=== PATIENT | male | born 1960 | race Caucasian/White ===

== ENCOUNTER 2019-04-12 10:31 | Outpatient (CLI) | payer MEDICARE, MEDICAID, SELFPAY ==
[2019-04-12 11:17] LABS: Absolute Basophil Count 0.05 k/cumm (0.0-0.2); Absolute Eosinophil Count 0.18 k/cumm (0.0-0.7); Absolute Lymphocyte Count 1.74 k/cumm (1.2-3.4); Absolute Monocyte Count 0.55 k/cumm (0.11-0.7); Absolute Neutrophil Count 2.63 k/cumm (1.2-6.7); Eosinophils % 3.5; HCT 36.1 % (40.0-50.0); HGB 12.5 g/dL (13.5-17.5); Lymphocytes % 33.8; Mean Corp. HGB Concentration 34.6 g/dL (32.0-36.0); Mean Corpuscular Hemoglobin 31.4 pg (27.0-33.0); Mean Corpuscular Volume 90.7 fL (80-95); Mean Platelet Volume 9.7 fL (8.0-11.0); Monocytes % 10.7; Platelet Count 260 x1000/uL (130-400); RBC 3.98 m/cumm (4.50-6.00); RBC Distribution Width 14.7 % (11.8-14.1); White Blood Cell Count 5.15 k/cumm (4.4-10.8)
[2019-04-12 12:16] LABS: ALT 31 U/L (16-63); AST 24 U/L (15-37); Albumin 3.7 g/dL (3.4-5.0); Alkaline Phosphatase 50 U/L (46-116); Anion Gap 7.7 mmol/L (3-11); BUN 13 mg/dL (7-18); CO2 29.3 mmol/L (21.0-32.0); CREATININE 0.66 mg/dL (0.70-1.30); Calcium 9.1 mg/dL (8.5-10.1); Calculated LDL 254 mg/dL; Chloride 103 mmol/L (98-107); Cholesterol 329 mg/dL (50-200); Glucose 86 mg/dL (70-100); HDL Cholesterol 65 mg/dL (40-60); Potassium 4.4 mmol/L (3.5-5.1); Sodium 140 mmol/L (136-145); Triglyceride 53 mg/dL (30-150)
== END 2019-04-12 10:51 ==
PROVIDERS: PCP Family Medicine; Visit Provider Family Medicine
DX: K50.818 Crohn's disease of both small and large intestine with other complication (principal); E78.89 Other lipoprotein metabolism disorders; Z13.6 Encounter for screening for cardiovascular disorders
CPT/HCPCS: 36415; 80053; 80061; 85025

== ENCOUNTER 2023-11-04 15:29 | Outpatient (CLI) | payer MEDICARE, MEDICAID, SELFPAY ==
--- NOTE | 2023-11-04 10:15 | DI.RAD_ITS ---
Exam(s) XR KNEE LT 4V AP,LAT,FAMILIA,PAT EXAM: XR KNEE LT 4V AP,LAT,FAMILIA,PAT CLINICAL HISTORY: OA LEFT KNEE. TECHNIQUE: 2D digital imaging was performed of the left knee. Five images were obtained. Merchant, AP, lateral and PA tunnel views were obtained. COMPARISON: CR LEFT KNEE 3 VIEW COMPLETE from 01/10/2018 FINDINGS: BONES: No acute fracture is present. No bony destructive lesion is seen. There are enthesophytes at the anterior patella. JOINTS: The knee is normally aligned. No joint effusion is seen. The joint space is well maintained. SOFT TISSUE: Vascular calcifications are present. IMPRESSION: The joint space is well maintained. DATA REPOSITORY: RADIATION DOSE DELIVERED:
== END 2023-11-04 15:30 | disposition home or self-care (01) ==
LOC: DIORS 15:30
PROVIDERS: PCP Family Medicine; Referring Provider Family Medicine; Visit Provider Student in an Organized Health Care Education/Training Program
DX: M17.12 Unilateral primary osteoarthritis, left knee (principal)
CPT/HCPCS: 20610; 99203; J1010; 73564

== ENCOUNTER 2023-11-08 05:02 | Outpatient (CLI) | payer MEDICARE, MEDICAID, SELFPAY ==
[2023-11-08 10:16] LABS: ALT 49 U/L (16-63); AST 44 U/L (15-37); Albumin 3.6 g/dL (3.4-5.0); Alkaline Phosphatase 77 U/L (46-116); Anion Gap 11.2 mmol/L (3-11); BUN 21 mg/dL (7-18); CO2 27.8 mmol/L (21.0-32.0); CREATININE 0.6 mg/dL (0.70-1.30); Calcium 9.2 mg/dL (8.5-10.1); Calculated LDL 159 mg/dL (<100); Chloride 106 mmol/L (98-107); Cholesterol 258 mg/dL (<200); Estimated GFR 109.83 (mL/min/1.73m2); Glucose 93 mg/dL (74-106); HDL Cholesterol 92 mg/dL (40-60); Potassium 3.9 mmol/L (3.5-5.1); Sodium 145 mmol/L (136-145); Total Protein 8.9 g/dL (6.4-8.2); Triglyceride 35 mg/dL (<150)
== END 2023-11-08 05:03 | disposition home or self-care (01) ==
LOC: LBO 05:03
PROVIDERS: PCP Family Medicine; Referring Provider Family Medicine; Visit Provider Family Medicine
DX: E78.5 Hyperlipidemia, unspecified (principal)
CPT/HCPCS: 36415; 80053; 80061

== ENCOUNTER 2023-11-13 20:17 | Inpatient (IN) | payer MEDICARE, MEDICAID, SELFPAY ==
[2023-11-13] VITALS (41 sets, daily range): BP systolic 76–160; BP diastolic 40–138; PULSE 70–101; RESP 15–29; TEMP 36.7–38.8; O2SAT 91–98
--- NOTE | 2023-11-13 20:00 | RT.EKG_ITS ---
APPROVED REPORT Exam: Resting ECG Reason for Exam: fall Patient Location: E HR:95 bpm ECG Measurements Heart Rate 95 AXIS WV 151 P 41 QRSd 95 QRS 55 QT 384 T 49 QTc 485 Conclusion Sinus rhythm...normal P axis, V-rate 60- 99 Probable left atrial enlargement...P >50mS, <-0.10mV V1 sinus rhythm, normal axis, normal intervals non ischemic
--- NOTE | 2023-11-13 20:30 | DI.CT_ITS ---
Exam(s) CT BRAIN NECK CTA EXAM: CT BRAIN NECK CTA CLINICAL HISTORY: falling x2 days. TECHNIQUE: Imaging Protocol: Axial CT angiography was performed with multi-slice acquisition and mu lti-planar and/or 3D reconstructions. CONTRAST MATERIAL: Intravenous: Omnipaque 350 Contrast volume:structured data in ml COMPARISON: No exams were available for comparison FINDINGS: CTA Neck W: Aortic arch anatomy: Average right subclavian artery is noted. In addition, the left vertebral arter y originates as an independent vessel off the aortic arch. No intimal flap evident. Anterior circulation: Both common carotid arteries ascend with normal luminal diameters. On the right side there is some calcified plaque at the carotid bulb and proximal right ICA with appr oximately 10 percent stenosis. Above the cell below the right ICA exhibits normal diameter in the up per neck and skull base. No dissection. The left common carotid artery ascends with normal luminal diameter. There is plaque at the carotid bulb-proximal left ICA with approximately 30-40 percent stenosis. Above this level the left ICA in t he upper neck exhibits normal diameter. No dissection Posterior circulation: The left vertebral artery arises from the aortic arch as an independent vessel. The right vertebral artery arises off of the right common carotid artery. It does not appear to arise off the average ri ght subclavian artery. Both vertebral arteries exhibit normal luminal diameters within the foramen transversarium. Both vertebral arteries contribute to the formation of the basilar artery at the skull base. CTA Brain W: Anterior circulation: Both internal carotid arteries are patent in the skull base-carotid canals as well as within the cave rnous sinuses. The supraclinoid aspects of the ICAs are patent. Both A1 segments are patent as are the anterior cer ebral arteries and there is no evidence of aneurysm at the level of the anterior communicating artery . Both middle cerebral arteries are patent with no evidence of significant stenosis nor intraluminal th rombus. There also no aneurysms of these vessels. Posterior circulation: The basilar artery ascends in the midline. Distally it gives off patent bilateral superior cerebella r arteries. Above this level the basilar artery terminates as patent bilateral posterior cerebral arteries. The left P1 segment is thinner than the right and there is a posterior communicating artery on the le ft side of the [id number] adding flow to the left posterior cerebral artery. There is no evidence of aneurysm at the tip of the basilar artery nor elsewhere in the [id number] is. CT BRAIN: There is no evidence of intracranial hemorrhage, mass effect, or shift of midline structures. There are no extra-axial fluid collections. Ventricles are not enlarged or shifted. Heavy calcification i s noted in in both basal ganglia as well as both thalami. There are no ring enhancing lesions in the brain and no abnormal meningeal enhancement. There is mild periventricular hypodensity consistent with chronic small vessel disease. [facility] report states acute to subacute appearing infarct involving the superior right prec entral gyrus. Not sure that I appreciate this. IMPRESSION: 1. Calcified plaque in the proximal internal carotid arteries bilaterally with approximately 10 perce nt stenosis on the right and 30-40 percent stenosis on the left. 2. Patent vertebral arteries. However, the origin of the left vertebral artery is off of the aortic arch and the origin of the right vertebral artery is off the right common carotid artery. There is a n aberrant right subclavian artery here. 3. Patent intracranial arteries. 4. [facility] report states acute to subacute appearing infarct of the right superior precentr al gyrus. Recommend follow-up MRI with diffusion imaging. RADIATION DOSE DELIVERED: 1,950.26mGy.cm Total DLP DATA REPOSITORY: All CT scans at this facility are submitted to the National Radiology Data Registry (NRDR) Dose Index Registry (DIR) with the [employer] ([employer]). RADIATION OPTIMIZATION: All CT scans at this facility use at least one of these dose optimization te chniques: automated exposure control; mA and/or kV adjustment per patient size (includes targeted exa ms where dose is matched to clinical indication); or iterative reconstruction.
[2023-11-13 20:42] LABS: Abs Immature Grans 0.01 10^3/uL (0.0-0.06); Absolute Basophil Count 0.04 10^3/uL (0.0-0.2); Absolute Eosinophil Count 0.01 10^3/uL (0.0-0.7); Absolute Lymphocyte Count 0.87 10^3/uL (1.2-3.4); Absolute Monocyte Count 1.06 10^3/uL (0.1-0.8); Absolute Neutrophil Count 4.97 10^3/uL (1.2-6.7); Basophils % 0.6; Eosinophils % 0.1; HCT 32.1 % (40.0-50.0); HGB 11.2 g/dL (13.5-17.5); Immature Grans % 0.1; Lymphocytes % 12.5; MCH 33.6 pg (27.0-33.0); MCHC 34.9 % (32.0-36.0); MCV 96 fL (80-95); MPV 10.4 fL (8.0-11.0); Monocytes % 15.2; Neutrophils % 71.5; Platelet Count 110 10^3/uL (130-400); RBC 3.33 10^6/uL (4.36-5.78); RDW 14.2 % (11.8-14.1); RDW-SD 50.9 fL; WBC 6.96 10^3/uL (4.4-10.8)
[2023-11-13 20:43] LABS: BE (Venous) 3 mmol/L (-2-3); ESR 77 mm/hr (0-20); HCO3 (Venous) 27 mmol/L (23-28); Lactate 1.3 mmol/L (0.6-1.4); O2 Sat (Venous) 78 %; TCO2 (Venous) 24 mmol/L (24-29); pCO2 (Venous) 38 mmHg (41-51); pH (Venous) 7.45 (7.31-7.41); pO2 (Venous) 42 mmHg
--- NOTE | 2023-11-13 20:43 | ED.GENADUL_ITS ---
Discharge Plan Disposition Patient Disposition: Admit to [facility] Condition: Stable Discharge Details Clinical Impression: Cerebrovascular accident Primary Care Provider: Guy Dias ED Provider: Dilshad Devries Home Meds and New Rx's Prescriptions: No Action atorvastatin 40 mg tablet 40 mg PO QHS Qty: 90 3RF multivitamin [Daily Multi-Vitamin] 1 EACH tablet 1 ea PO cholecalciferol (vitamin D3) 1,000 UNIT capsule 1,000 unit PO DAILY Qty: 30 folic acid 1 mg tablet 1 mg PO DAILY Qty: 90 3RF Rx Instructions: with sulfasalazine sulfasalazine 500 mg tablet 500 mg PO BID Qty: 180 3RF Rx Instructions: for Crohn's enteritis HPI General Date/Time Provider Initiated Documentation: 11/13/23 20:33 . HPI Narrative: 63 year-old male presents to ED today by EMS with his brother with a chief complaint of multiple falls since yesterday, unsteadiness, possibly impaired speech with onset noted yesterday evening. Patient is febrile, has noted rash on R bicep area, incontinence on arrival. Quality described as follows commands but unreliable per specific story, denies major pain anywhere, no radiation to tachycardia, he is febrile, denies nausea vomiting, has been eating, denies numbness to half his body, denies visual changes. Severity is described as unable to quantify/10. Palliating factors include nothing specific attempted. Provoking factors include nothing specific. Events leading up to the incident/Associated Symptoms: Patient's brother said he had to help him up multi ple times today. Patient not anticoagulated. Related Data Home Medications Medication Instructions Recorded Confirmed cholecalciferol (vitamin D3) 25 1,000 unit PO DAILY ##30 09/23/12 11/13/23 mcg (1,000 unit) capsule multivitamin (Daily Multi-Vitamin 1 ea PO 09/23/12 11/04/23 tablet) folic acid 1 mg tablet 1 mg PO DAILY #90 tab-caps 08/23/23 11/13/23 atorvastatin 40 mg tablet 40 mg PO QHS #90 tabs 09/20/23 11/13/23 sulfasalazine 500 mg tablet 500 mg PO BID #180 tabs 10/14/23 11/13/23 Previous Rx's Medication Instructions Recorded folic acid 1 mg tablet 1 mg PO DAILY #90 tab-caps 02/05/24 atorvastatin 40 mg tablet 40 mg PO QHS #90 tabs 09/20/23 sulfasalazine 500 mg tablet 500 mg PO BID #180 tabs 10/14/23 Allergies Allergy/AdvReac Type Severity Reaction Status Date / Time Penicillins Allergy Unknown unknown Verified 11/13/23 20:38 General Stated Complaint: Fall/Non TraumaCriteria YADI: 3 Review of Systems All systems reviewed & are unremarkable except as noted in HPI and below Exam Narrative Exam Narrative: GENERAL APPEARANCE: Well-nourished, non-toxic, awake and alert, atraumatic, no acute distress. SKIN: Warm, pink, dry, vesicular rash 5 x 5 cm to bicep area, question staph infection HEAD: Normocephalic, some mild ecchymosis to R forehead, no large scalp hematoma, no Romo's sign, no periorbital ecchymosis, normal hair distribution for gender/age. EYES: Pupils PERRLA, EOMs intact without nystagmus, normal conjunctiva, no exudates on lids/lashes. ENT: Nares patent, no circumoral cyanosis, no facial swelling NECK: Supple, trachea midline, painless cervical ROM, no midline vertebral tenderness/crepitus/step-offs. LUNGS/CHEST: Lungs CTA bilaterally- no rhonchi/rales/wheezes diffusely, non- labored respirations, normal A/P diameter, symmetrical expansion, no chest wall deformity HEART (CV/PV): Regular rate and rhythm without murmur, no peripheral edema, no JVD. ABDOMEN: Soft, non-distended, no guarding, no tenderness. MSK: Normal ROM, no swelling/deformity to bilateral UEs or LEs, moving all extremities without weakness, no cyanosis, spine midline without tenderness, normal curvature. NEURO: Mental Status AAOx4 - alert to person, place, events - able to follow all commands No facial droop, no forehead involvement. Motor: No focal weakness - strength 5/5 in bilateral UEs and LEs, proximal and distal, symmetric, no pronator drift, no hemiparesis, Sensory: sensation intact to light touch globally. Gait NT PSYCH: flat affect, cooperative, pleasant, appropriate speech Course Vital Signs Vital signs: Vital Signs Respiratory Rate 22 11/13/23 20:23 Temperature 38.5 C H 11/13/23 20:25 Temperature Source Temporal Artery Scan 11/13/23 20:25 Pulse 93 H 11/13/23 20:31 Pulse 95 H 11/13/23 20:31 Respiratory Rate 24 11/13/23 20:31 Respiratory Effort Normal 11/13/23 20:33 Blood Pressure 160/78 H 11/13/23 20:31 Blood Pressure Mean 99 11/13/23 20:31 Blood Pressure Position Supine 11/13/23 20:25 Pulse Oximetry 93 11/13/23 20:31 Pain Level 0 11/13/23 20:25 Lab/Test Results Lab/Test Results: 11/13/23 20:34 Blood Blood Culture - Pending 11/13/23 20:34 Blood Blood Culture - Pending Laboratory Tests Range/Units 11/13/23 20:34 WBC (4.4-10.8) 10^3/uL 6.96 RBC (4.36-5.78) 10^6/uL 3.33 L Hgb (13.5-17.5) g/dL 11.2 L Hct (40.0-50.0) % 32.1 L MCV (80-95) fL 96 H MCH (27.0-33.0) pg 33.6 H MCHC (32.0-36.0) % 34.9 RDW (11.8-14.1) % 14.2 H Plt Count (130-400) 10^3/uL 110 L MPV (8.0-11.0) fL 10.4 Immature Gran % 0.1 Neutrophils % 71.5 Lymphocytes % 12.5 Monocytes % 15.2 Eosinophils % 0.1 Basophils % 0.6 Nucleated RBC % (0.0-0.3) % 0.0 Absolute Neutrophils (1.2-6.7) 10^3/uL 4.97 Absolute Lymphocytes (1.2-3.4) 10^3/uL 0.87 L Absolute Monocytes (0.1-0.8) 10^3/uL 1.06 H Absolute Eosinophils (0.0-0.7) 10^3/uL 0.01 Absolute Basophils (0.0-0.2) 10^3/uL 0.04 Medical Decision Making This dictation utilizes [id number] dictation software and may contain unedited grammatical errors. 63 y/o M presents to ED today with a chief complaint of multiple falls since yesterday in the evening, weakness, rash to R arm, altered from baseline per brother. Patient is febrile, nontachycardic, no nausea vomiting, denies black or bloody stools, no significant coughing or URI symptoms. Patients' medical history: History of cerumen impaction, hyperlipidemia, developmental disorder, Crohn's disease, anemia. Pertinent exam findings / vital signs include fever, rash to right bicep area that appears vesicular question staph cellulitis, benign pulmonary exam, benign abdomen, no murmur and cardiac auscultation, moving all extremities without deficit, no nystagmus, speech abnormality but has cognitive delay, I do not suspect CVA. Differential / pathologies of concern include SAH, ICH, CVA/TIA, sepsis, less likely ACS, electrolyte abnormality, UTI, pneumonia. Diagnostic studies of: -CBC, CMP, troponin I (+3hr delta), BNP, VBG, CRP/ESR, lactate, magnesium, procalcitonin, EKG, COVID/flu/RSV PCR, blood cultures, urinalysis, CTA head and neck, x-ray chest 1 view. -CBC shows no leukocytosis, anemia of 11.2, baseline around 12, mildly low platelets at 110 -CRP/ESR elevated -VBG shows mild alkalosis with low CO2 possible hyperventilation syndrome -CMP shows mildly elevated BUN, mildly elevated bilirubin -Lipase within normal limits -Lactate 1.3, procalcitonin 0.2, do not suspect sepsis at this time -BNP 582 -Initial troponin 133, delta is pending at time of signout -COVID/flu/RSV negative by PCR -Magnesium within normal limits -Blood Cx's pending -EKG shows a sinus rhythm at 95 bpm with P waves followed by narrow complex QRS with normal axis, good R wave progression, possible left atrial enlargement, no ST changes of ischemia, normal QT QTc no priors for comparison -XR Chest no pathology -CTA Brain & Neck shows some calcified placques almost symmetrical- as well as a likely small 1-2 day old CVA, will consult for admission. Patient has no history of atrial fibrillation Interventions of: -1L IVF, 1g IV APAP, 15mg IV Ketorlac. ED Course/Assessment/Plan: 63-year-old patient with baseline developmental disorder presents with some falls since last night and balance issues, he has no obvious left-sided weakness on arrival and is following commands appropriately, his laboratory workup has an elevated BNP of 582 and an initial troponin of 133 with delta pending at time of signout. His CTA shows a small subacute appearing infarction above the superior right precentral gyrus that would be consistent with left-sided symptoms. I did approach hospitalist Dr. Weeks for admission to the hospital for CVA for optimization on medication management and possible referral to rehab services. Added 325mg ASA, Ancef for fever, and patient accepted for admission by Dr. Weeks @ 2315 Disposition of Cerebrovascular Accident. Patient verbalized understanding of the plan and return to ED criteria and engaged in shared decision making. Medical Records Medical records reviewed: Yes I reviewed the patient's medical records. Imaging Data Radiologic Study: Attestation: I personally reviewed and interpreted this imaging study as follows: Imaging: CT Scan Radiologist's impression: Addendum created by Herman Nunez MD on 11/13/2023 11:00:35 PM EDT: THIS REPORT CONTAINS FINDINGS THAT MAY BE CRITICAL TO PATIENT CARE. The findings were verbally communicated via telephone conference with DILSHAD DEVRIES at 11:00 PM EDT on 11/13/2023. The findings were acknowledged and understood. Initial report created on 11/13/2023 10:59:28 PM EDT: PROCEDURE INFORMATION: Exam: CTA Head Without And With Contrast, Arteriography Exam date and time: 11/13/2023 10:10 PM Age: 63 years old Clinical indication: Other: Falling x2 days TECHNIQUE: Imaging protocol: Computed tomographic angiography of the head without and with contrast. Exam focused on the arteries. 3D rendering (Not supervised by radiologist): MIP and/or 3D reconstructed images were created by the technologist. Radiation optimization: All CT scans at this facility use at least one of these dose optimization techniques: automated exposure control; mA and/or kV adjustment per patient size (includes targeted exams where dose is matched to clinical indication); or iterative reconstruction. Contrast material: [id number]; Contrast volume: 85 ml; Contrast route: INTRAVENOUS (IV); COMPARISON: No relevant prior studies available. FINDINGS: Limitations: Examination is limited by motion artifact. ANTERIOR CIRCULATION: Right internal carotid artery: Intracranial segment is patent with no significant stenosis or occlusion. No aneurysm. Right middle cerebral artery: No occlusion or significant stenosis. No aneurysm. Right anterior cerebral artery: No occlusion or significant stenosis. No aneurysm. Left internal carotid artery: Intracranial segment is patent with no significant stenosis. No aneurysm. Left middle cerebral artery: No occlusion or significant stenosis. No aneurysm. Left anterior cerebral artery: No occlusion or significant stenosis. No aneurysm. POSTERIOR CIRCULATION: Right vertebral artery: No occlusion or significant stenosis. No aneurysm. Left vertebral artery: No occlusion or significant stenosis. No aneurysm. Basilar artery: No occlusion or significant stenosis. No aneurysm. Right posterior cerebral artery: No occlusion or significant stenosis. No aneurysm. Left posterior cerebral artery: Patent and type left posterior cerebral artery. HEAD: Brain: Acute to subacute appearing infarct involving the superior right precentral gyrus. Prominent symmetric calcifications of the basal ganglia and thalami. Mild nonspecific hypodensities of the periventricular and deep subcortical white matter, most likely secondary to chronic microangiopathic ischemic change. No intracranial hemorrhage or extra-axial fluid collection. No evidence of mass effect or midline shift. Cerebral ventricles: No ventriculomegaly. Bones/joints: Unremarkable. Paranasal sinuses: Visualized sinuses are normal. No fluid levels. Mastoid air cells: Visualized mastoids are normal. No mastoid effusion. Soft tissues: Frontal scalp contusions. IMPRESSION: 1. Acute to subacute appearing infarct involving the superior right precentral gyrus. 2. No intracranial arterial occlusion or significant stenosis. 3. Frontal scalp contusions. PROCEDURE INFORMATION: Exam: CTA Neck Without And With Contrast Exam date and time: 11/13/2023 10:10 PM Age: 63 years old Clinical indication: Other: Falling x2 days TECHNIQUE: Imaging protocol: Computed tomographic angiography of the neck without and with contrast. Exam focused on the cervical segments of the vasculature. 3D rendering (Not supervised by radiologist): MIP and/or 3D reconstructed images were created by the technologist. Radiation optimization: All CT scans at this facility use at least one of these dose optimization techniques: automated exposure control; mA and/or kV adjustment per patient size (includes targeted exams where dose is matched to clinical indication); or iterative reconstruction. Contrast material: [id number]; Contrast volume: 85 ml; Contrast route: INTRAVENOUS (IV); COMPARISON: No relevant prior studies available. FINDINGS: Right common carotid artery: No significant stenosis. No dissection or occlusion. Right internal carotid artery: Atherosclerotic plaques involving the proximal extracranial right internal carotid artery without evidence of hemodynamically significant stenosis (0% stenosis by NASCET criteria). Right external carotid artery: No occlusion or significant stenosis. Left common carotid artery: No significant stenosis. No dissection or occlusion. Left internal carotid artery: Atherosclerotic plaques within the proximal extracranial left internal carotid artery cause approximately 30 % stenosis by NASCET criteria. Remaining portions of the extracranial left ICA are patent. Left external carotid artery: No occlusion or significant stenosis. Right vertebral artery: No significant stenosis. No dissection or occlusion. Left vertebral artery: No significant stenosis. No dissection or occlusion. Right subclavian artery: Aberrant origin of the right subclavian artery. Soft tissues: Unremarkable. Bones/joints: No acute fracture. IMPRESSION: No occlusion or severe stenosis in the arteries of the neck. REFERENCES: NASCET CRITERIA. The degree of stenosis in the cervical segment of the internal carotid artery is based on NASCET criteria. Normal is no stenosis. Mild is less than 50% stenosis. Moderate is 50-69% stenosis. Severe is 70% to 99% stenosis. Total occlusion is no detectable patent lumen. Dictated and Authenticated by: Herman Nunez MD. Ordering:KANDY Yung MD Radiologic Study #2: Attestation: I personally reviewed and interpreted this imaging study as follows: Imaging: X-Ray Radiologist's impression: Exam: XR Chest Exam date and time: 11/13/2023 10:25 PM Age: 63 years old Clinical indication: Possible sepsis, source unknown TECHNIQUE: Imaging protocol: Radiologic exam of the chest. Views: 1 view. COMPARISON: CT BRAIN NECK CTA 11/13/2023 10:10 PM FINDINGS: Lungs: No focal areas of consolidation. Pleural spaces: No pleural effusion. No pneumothorax. Heart/Mediastinum: Cardiac and mediastinal silhouettes are unremarkable. Bones/joints: No acute osseus lesion or fracture. IMPRESSION: No acute cardiopulmonary findings. Dictated and Authenticated by: Herman Nunez MD. Ordering:KANDY Yung MD Lab Data Lab results reviewed: Yes I reviewed the patient's lab results. Labs: 11/13/23 20:50 Blood Blood Culture - Pending 11/13/23 20:34 Blood Blood Culture - Pending Laboratory Tests Range/Units 11/13/23 11/13/23 20:34 20:50 WBC (4.4-10.8) 10^3/uL 6.96 RBC (4.36-5.78) 10^6/uL 3.33 L Hgb (13.5-17.5) g/dL 11.2 L Hct (40.0-50.0) % 32.1 L MCV (80-95) fL 96 H MCH (27.0-33.0) pg 33.6 H MCHC (32.0-36.0) % 34.9 RDW (11.8-14.1) % 14.2 H Plt Count (130-400) 10^3/uL 110 L MPV (8.0-11.0) fL 10.4 Immature Gran % 0.1 Neutrophils % 71.5 Lymphocytes % 12.5 Monocytes % 15.2 Eosinophils % 0.1 Basophils % 0.6 Nucleated RBC % (0.0-0.3) % 0.0 Absolute Neutrophils (1.2-6.7) 10^3/uL 4.97 Absolute Lymphocytes (1.2-3.4) 10^3/uL 0.87 L Absolute Monocytes (0.1-0.8) 10^3/uL 1.06 H Absolute Eosinophils (0.0-0.7) 10^3/uL 0.01 Absolute Basophils (0.0-0.2) 10^3/uL 0.04 ESR (0-20) mm/hr 77 H VBG pH (7.31-7.41) 7.45 H VBG pCO2 (41-51) mmHg 38 L VBG pO2 mmHg 42 VBG HCO3 (23-28) mmol/L 27 VBG Total CO2 (24-29) mmol/L 24 VBG O2 Saturation % 78 VBG Base Excess (-2-3) mmol/L 3 VBG Lactate (0.6-1.4) mmol/L 1.3 Sodium (136-145) mmol/L 135 L Potassium (3.5-5.1) mmol/L 3.5 Chloride (98-107) mmol/L 100 Carbon Dioxide (21.0-32.0) mmol/L 26.0 Anion Gap (3-11) mmol/L 9.0 BUN (7-18) mg/dL 21 H Creatinine (0.70-1.30) mg/dL 0.7 Est GFR (CKD-EPI 2020) (mL/min/1.73m2) 104.83 Glucose (74-106) mg/dL 120 H Calcium (8.5-10.1) mg/dL 8.5 Magnesium (1.8-2.4) mg/dL 1.8 Total Bilirubin (0.2-1.0) mg/dL 1.7 H AST (15-37) U/L 42 H ALT (16-63) U/L 38 Alkaline Phosphatase (46-116) U/L 71 Troponin I (< or =60) ng/L 133 H* C-Reactive Protein (<or=0.5) mg/dL 4.63 H NT-Pro-B Natriuret Pep (<300) pg/mL 582 H Total Protein (6.4-8.2) g/dL 8.5 H Albumin (3.4-5.0) g/dL 3.4 Lipase (16-77) U/L 40 Procalcitonin ng/mL 0.2 COVID-19 Source Nasopharynx SARS-CoV-2 (PCR) (Negative) Negative Influenza Type A (PCR) (Negative) Negative Influenza Type B (PCR) (Negative) Negative RSV (PCR) (Negative) Negative Quality:SDOH Health Related Social Needs: No Data to Display PFSH All Active Problems (Updated 11/13/23 @ 23:10 by RAMONA Small) Cerebrovascular accident (Chronic) Cerumen impaction (Acute) Arthritis of knee, left (Acute) DEPO MEDROL 11/04/23 Neck muscle strain (Acute) Testicular hypofunction (Acute 10/06/11) Regional enteritis of unspecified site (Acute 01/15/83) Colonoscopy Dr Marcy Suero 08/12/1983; FAMILY DECLINES REPEAT Hyperlipidemia (Acute 09/17/07) LDL >200; RISK 6% CALCULATED 09/2007; RX LIFESTYLE, FAMILY DECLINES MEDS; recalculated 5.4% no med indicated 05/2014; LDL >190: rec statin based on LDL; Risk calculated 06/2016 7.8% would not merit rx. Developmental disorder (Acute 07/19/81) [employer], [facility] Crohn's disease of both small and large intestine with other complication (Acute) perianal inflammation; compound topical Anemia (Acute 09/27/08) Hb 12.4 in 2008; mild normocytic; persists, likley due to sulfasalazine; normal iron, B12 Surgical History H/O colonoscopy (08/12/83) Family History Mother Ulcerative colitis 08/2010 Maternal Aunt Diabetes Paternal Uncle Colon cancer Maternal Grandmother Liver cancer Social History (Updated 09/20/23 @ 13:30 by Sindy Norman) Smoking/Tobacco Use Status: Never Second Hand Exposure: No Smoking risk assessment performed?: Yes Alcohol Intake: never Substance use type: does not use Adopted: No Caregiver/Support person: Yes (mother) Foster care: No Household members: other Details: lives with brother Housing: house Number of Children: 0 number of grandchildren: 0 Education Level: high school Do you need help understanding health information?: Often current occupation: [employer] Pets and animals: No How often do you talk on the phone with friends or family?: twice per week How often do you get together with friends or relatives?: three or more times per week Do you belong to any clubs or organized social groups?: no Panel score (0-1 are the most socially isolated patients): 1 Jyotsna/Uatsdin: Shinto Special jyotsna needs: No Seatbelt use: always Drive intox or ride w/intox hazmat tanker driver: No Water heater temp set <120 deg: Yes Working smoke detector in home: Yes Fire extinguisher in home: Yes Carbon monox detector in home: Yes Victim of physical abuse: No Victim of emotional abuse: No Victim of sexual abuse: No Additional Social history: LIVE W/ PARENTS IN [place]
--- NOTE | 2023-11-13 20:44 | DI.RAD_ITS ---
Exam(s) XR CHEST 1V IN DI DEPT EXAM: XR CHEST 1V IN DI DEPT CLINICAL HISTORY: possible sepsis, source unknown. TECHNIQUE: 2D digital imaging was performed. COMPARISON: No exams were available for comparison FINDINGS: Single AP portable view. Heart size is upper normal. The mediastinum is not widened. Lungs are clear. No infiltrates nor obvious pleural effusions. IMPRESSION: No acute pulmonary findings on this single AP portable view of the chest. DATA REPOSITORY: RADIATION DOSE DELIVERED:
[2023-11-13 21:02] LABS: ALT 38 U/L (16-63); AST 42 U/L (15-37); Albumin 3.4 g/dL (3.4-5.0); Alkaline Phosphatase 71 U/L (46-116); BUN 21 mg/dL (7-18); Bilirubin, Total 1.7 mg/dL (0.2-1.0); C-Reactive Protein 4.63 mg/dL (<or=0.5); CREATININE 0.7 mg/dL (0.70-1.30); Calcium 8.5 mg/dL (8.5-10.1); Chloride 100 mmol/L (98-107); Estimated GFR 104.83 (mL/min/1.73m2); Glucose 120 mg/dL (74-106); Lipase 40 U/L (16-77); Magnesium 1.8 mg/dL (1.8-2.4); Potassium 3.5 mmol/L (3.5-5.1); Sodium 135 mmol/L (136-145); Total Protein 8.5 g/dL (6.4-8.2)
[2023-11-13 21:04] LABS: Troponin I 133 ng/L (< or =60)
[2023-11-13] MEDS: Ketorolac 15 MG/ML VIAL IVP (21:04)
[2023-11-13] MEDS: ACETAMINOPHEN 1,000 MG/100 ML BTL 400 MG IVPB (21:05)
[2023-11-13] MEDS: Normal Saline 1,000 ML 1000 ML IV (21:06)
[2023-11-13 21:09] LABS: NT-proBNP 582 pg/mL (<300)
[2023-11-13 21:31] LABS: COVID-19 PCR Negative (Negative); Influenza A PCR Negative (Negative); Influenza B PCR Negative (Negative); RSV PCR Negative (Negative)
[2023-11-13 21:38] LABS: Source Nasopharynx
[2023-11-13 21:48] LABS: Procalcitonin 0.2 ng/mL
[2023-11-13] MEDS: Omnipaque 350 MG/ML 100 ML BTL IJ (22:11)
[2023-11-13] MEDS: Normal Saline - Diluent 50 ML VIAL IJ (22:19)
--- NOTE | 2023-11-13 22:54 | DI.VRAD_ITS ---
PROCEDURE INFORMATION: Exam: XR Chest Exam date and time: 11/13/2023 10:25 PM Age: 63 years old Clinical indication: Possible sepsis, source unknown TECHNIQUE: Imaging protocol: Radiologic exam of the chest. Views: 1 view. COMPARISON: CT BRAIN NECK CTA 11/13/2023 10:10 PM FINDINGS: Lungs: No focal areas of consolidation. Pleural spaces: No pleural effusion. No pneumothorax. Heart/Mediastinum: Cardiac and mediastinal silhouettes are unremarkable. Bones/joints: No acute osseus lesion or fracture. IMPRESSION: No acute cardiopulmonary findings. Dictated and Authenticated by: Herman Nunez MD. Ordering:KANDY Yung MD
--- NOTE | 2023-11-13 23:00 | DI.VRAD_ITS ---
Addendum created by Herman Nunez MD on 11/13/2023 11:00:35 PM EDT: THIS REPORT CONTAINS FINDINGS THAT MAY BE CRITICAL TO PATIENT CARE. The findings were verbally communicated via telephone conference with INDU DEVRIES at 11:00 PM EDT on 11/13/2023. The findings were acknowledged and understood. Initial report created on 11/13/2023 10:59:28 PM EDT: PROCEDURE INFORMATION: Exam: CTA Head Without And With Contrast, Arteriography Exam date and time: 11/13/2023 10:10 PM Age: 63 years old Clinical indication: Other: Falling x2 days TECHNIQUE: Imaging protocol: Computed tomographic angiography of the head without and with contrast. Exam focused on the arteries. 3D rendering (Not supervised by radiologist): MIP and/or 3D reconstructed images were created by the technologist. Radiation optimization: All CT scans at this facility use at least one of these dose optimization techniques: automated exposure control; mA and/or kV adjustment per patient size (includes targeted exams where dose is matched to clinical indication); or iterative reconstruction. Contrast material: [id number]; Contrast volume: 85 ml; Contrast route: INTRAVENOUS (IV); COMPARISON: No relevant prior studies available. FINDINGS: Limitations: Examination is limited by motion artifact. ANTERIOR CIRCULATION: Right internal carotid artery: Intracranial segment is patent with no significant stenosis or occlusion. No aneurysm. Right middle cerebral artery: No occlusion or significant stenosis. No aneurysm. Right anterior cerebral artery: No occlusion or significant stenosis. No aneurysm. Left internal carotid artery: Intracranial segment is patent with no significant stenosis. No aneurysm. Left middle cerebral artery: No occlusion or significant stenosis. No aneurysm. Left anterior cerebral artery: No occlusion or significant stenosis. No aneurysm. POSTERIOR CIRCULATION: Right vertebral artery: No occlusion or significant stenosis. No aneurysm. Left vertebral artery: No occlusion or significant stenosis. No aneurysm. Basilar artery: No occlusion or significant stenosis. No aneurysm. Right posterior cerebral artery: No occlusion or significant stenosis. No aneurysm. Left posterior cerebral artery: Patent and type left posterior cerebral artery. HEAD: Brain: Acute to subacute appearing infarct involving the superior right precentral gyrus. Prominent symmetric calcifications of the basal ganglia and thalami. Mild nonspecific hypodensities of the periventricular and deep subcortical white matter, most likely secondary to chronic microangiopathic ischemic change. No intracranial hemorrhage or extra-axial fluid collection. No evidence of mass effect or midline shift. Cerebral ventricles: No ventriculomegaly. Bones/joints: Unremarkable. Paranasal sinuses: Visualized sinuses are normal. No fluid levels. Mastoid air cells: Visualized mastoids are normal. No mastoid effusion. Soft tissues: Frontal scalp contusions. IMPRESSION: 1. Acute to subacute appearing infarct involving the superior right precentral gyrus. 2. No intracranial arterial occlusion or significant stenosis. 3. Frontal scalp contusions. PROCEDURE INFORMATION: Exam: CTA Neck Without And With Contrast Exam date and time: 11/13/2023 10:10 PM Age: 63 years old Clinical indication: Other: Falling x2 days TECHNIQUE: Imaging protocol: Computed tomographic angiography of the neck without and with contrast. Exam focused on the cervical segments of the vasculature. 3D rendering (Not supervised by radiologist): MIP and/or 3D reconstructed images were created by the technologist. Radiation optimization: All CT scans at this facility use at least one of these dose optimization techniques: automated exposure control; mA and/or kV adjustment per patient size (includes targeted exams where dose is matched to clinical indication); or iterative reconstruction. Contrast material: [id number]; Contrast volume: 85 ml; Contrast route: INTRAVENOUS (IV); COMPARISON: No relevant prior studies available. FINDINGS: Right common carotid artery: No significant stenosis. No dissection or occlusion. Right internal carotid artery: Atherosclerotic plaques involving the proximal extracranial right internal carotid artery without evidence of hemodynamically significant stenosis (0% stenosis by NASCET criteria). Right external carotid artery: No occlusion or significant stenosis. Left common carotid artery: No significant stenosis. No dissection or occlusion. Left internal carotid artery: Atherosclerotic plaques within the proximal extracranial left internal carotid artery cause approximately 30 % stenosis by NASCET criteria. Remaining portions of the extracranial left ICA are patent. Left external carotid artery: No occlusion or significant stenosis. Right vertebral artery: No significant stenosis. No dissection or occlusion. Left vertebral artery: No significant stenosis. No dissection or occlusion. Right subclavian artery: Aberrant origin of the right subclavian artery. Soft tissues: Unremarkable. Bones/joints: No acute fracture. IMPRESSION: No occlusion or severe stenosis in the arteries of the neck. REFERENCES: NASCET CRITERIA. The degree of stenosis in the cervical segment of the internal carotid artery is based on NASCET criteria. Normal is no stenosis. Mild is less than 50% stenosis. Moderate is 50-69% stenosis. Severe is 70% to 99% stenosis. Total occlusion is no detectable patent lumen. Dictated and Authenticated by: Herman Nunez MD. Ordering:KANDY Yung MD
[2023-11-13 23:52] LABS: Bilirubin Negative (Negative); Blood Negative (Negative); Clarity Clear (Clear); Glucose Negative (Negative); Ketones Negative (Negative); Leukocyte Esterase Negative (Negative); Nitrite Negative (Negative); Specific Gravity 1.025 (1.005-1.025); pH 5.5 (5-8)
--- NOTE | 2023-11-13 23:53 | W.PM.HP.N ---
Date of service: 11/13/23 Time of Service: 23:53 Assessment and Plan Assessment and plan (1) Cerebrovascular accident: Start date: 11/11/23 Status: Acute Assessment and plan: This is a 63-year-old gentleman with chronic developmental delay on atorvastatin for hyperlipidemia but not on antihypertensives presenting with stroke symptoms and increased falling with injury to his right face and question of right-sided weakness though his CT of the head shows a subacute infarction in the right precentral gyrus which should cause left-sided weakness the patient appears to be slightly weaker on the right. He does not consistent findings. He will need an MRI of the head and echocardiogram with bubble study. Cardiac monitoring will be continued with patient having elevated troponins which will be trended but not having any evidence of acute cardiac ischemia. He is already on aspirin for his stroke and I will increase his atorvastatin to 80 mg daily for stroke and possible cardiac strain with troponin leak. Speech therapy, physical therapy and Occupational Therapy will see the patient. He is a full code at this time and is needed to be reevaluated with his multiple problems and what appears to be advanced disease with poor health. Qualifiers: CVA mechanism: occlusion Laterality of affected vessel: right Precerebral and cerebral artery: middle cerebral artery Qualified Code(s): I63.511 - Cerebral infarction due to unspecified occlusion or stenosis of right middle cerebral artery (2) Elevated troponin level not due myocardial infarction: Start date: 11/13/23 Status: Acute Assessment and plan: Patient troponins had trended slightly up but not exponentially and he is asymptomatic. Continue to trend troponins on present medical therapy for stroke and consider consultation with Dr. Samaniego [facility] cardiology if levels continue to rise. Patient has no history of previous CAD. (3) Cellulitis: Start date: 11/13/23 Status: Acute Assessment and plan: Over the right shoulder area and arm with vesicular rash which is warm to touch. Covered with Ancef IV. Qualifiers: Laterality: right Site of cellulitis: extremity Site of cellulitis of extremity: upper extremity Qualified Code(s): L03.113 - Cellulitis of right upper limb (4) Hyperlipidemia: Status: Chronic Assessment and plan: Currently on moderate dose atorvastatin which will be increased to high-dose. Qualifiers: Hyperlipidemia type: other hyperlipidemia Qualified Code(s): E78.49 - Other hyperlipidemia (5) Developmental disorder: Status: Chronic Assessment and plan: Patient does live with brother as relationship consultant. Close is seen to be reevaluated. (6) Anemia: Status: Chronic Assessment and plan: This appears stable and will be trended. Patient has no evidence of active bleeding but does have bruising of his right face. He does have a slightly low platelet count with PT/INR slightly elevated and liver functions at this slight elevation of total bilirubin indicating possible chronic liver disease. This can be further investigated with ultrasound. Patient is cautiously on subcu heparin for DVT prophylaxis with these abnormalities with risk benefit to be considered. With his elevated troponins if heparin infusion is initiated he will need to be watched very closely for bleeding with these abnormal findings and risk of bleeding increased. Once again patient does seem to have chronic disease processes which are somewhat advanced and sclerosis need to be reevaluated. Qualifiers: Anemia type: other cause Other causes of anemia: chronic disease, other Qualified Code(s): D63.8 - Anemia in other chronic diseases classified elsewhere (7) Elevated LFTs: Start date: 11/13/23 Status: Acute Assessment and plan: This appears to be recent onset with comparison to previous labs. Ultrasound the liver when available. (8) Thrombocytopenia: Start date: 11/13/23 Status: Acute Assessment and plan: Slightly low and stable with elevated PT/INR with no comparisons and chronic anemia. This may indicate underlying liver disease which should be evaluated further. Cautiously use subcutaneous heparin for DVT prophylaxis. (9) Crohn's disease of both small and large intestine with other complication: Status: Chronic Assessment and plan: Continue current medical therapy. Patient is on sulfasalazine. History of Present Illness History of Present Illness Chief Complaint: Right-sided weakness with difficulty speaking and falls Narrative: This is a 63-year-old development delayed gentleman presented to the ED at the prompting of his brother having had increased falling at home and injured his right face with some bruising over the 2 days prior to admission. This also symptoms was more than 48 hours prior to presentation. In the ED he did not have focalizing weakness but did have some speech impediment which may be chronic with his developmental delay rather than true expressive aphasia. He does wander in conversation. His brother was not present during my interview. He appeared comfortable and did not endorse any weakness that he noticed though he is a very poor historian. He was incontinent when he presented to the ED but did not have any seizure activity. CT of the head and CT of the head and neck did reveal a subacute right precentral gyrus CVA. Patient is currently with left-sided symptoms though the patient appears to have weakness on the right and is a question of speech difficulty which may not be associate with his CVA. He does not complain of headache and is not incontinent or having any active tremors. As stated he is a poor historian with further history not available. See ED course for full review. Patient did have a slight fever and vesicular rash over his right arm which is being treated as cellulitis. Also his troponin was slightly elevated and not rising exponentially but slightly elevated on second measurement. His EKG did not show any acute ischemic changes and he is on DVT prophylaxis but not initiated on heparin at this time. Cardiology was not consulted in the ED. Patient is not having symptoms. He was loaded with aspirin and placed on aspirin for his CVA. He is his BNP was slightly elevated and he will be having an echocardiogram as evaluation of his CVA. If troponins are trended and continue to rise this needs to be addressed as a separate issue. He has no overt history of CHF but his BNP is elevated with no comparisons. Once again echocardiogram will help with this evaluation. Patient also had findings of slightly elevated liver function test with slightly increased PT/INR and thrombocytopenia which appears acute on onset. Is being evaluated further with ultrasound of the liver. Patient is a full code. Review of Systems Narrative: 13 point review of systems otherwise unrevealing and only partially obtainable. PFSH All Active Problems (Updated 11/14/23 @ 11:33 by Ventura Weeks) Elevated LFTs (Acute) Thrombocytopenia (Acute) Elevated troponin level not due myocardial infarction (Acute) Cellulitis (Acute) Cerebrovascular accident (Acute) Cerumen impaction (Acute) Arthritis of knee, left (Acute) DEPO MEDROL 11/04/23 Neck muscle strain (Acute) Testicular hypofunction (Acute 10/06/11) Regional enteritis of unspecified site (Acute 01/15/83) Colonoscopy Dr Marcy Suero 08/12/1983; FAMILY DECLINES REPEAT Hyperlipidemia (Chronic 09/17/07) LDL >200; RISK 6% CALCULATED 09/2007; RX LIFESTYLE, FAMILY DECLINES MEDS; recalculated 5.4% no med indicated 05/2014; LDL >190: rec statin based on LDL; Risk calculated 06/2016 7.8% would not merit rx. 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 Crohn's disease of both small and large intestine with other complication (Chronic) perianal inflammation; compound topical Anemia (Chronic 09/27/08) Hb 12.4 in 2008; mild normocytic; persists, likley due to sulfasalazine; normal iron, B12 Surgical History H/O colonoscopy (08/12/83) Family History Mother Ulcerative colitis 08/2010 Maternal Aunt Diabetes Paternal Uncle Colon cancer Maternal Grandmother Liver cancer Social History (Updated 09/20/23 @ 13:30 by Sindy Norman) Smoking/Tobacco Use Status: Never Second Hand Exposure: No Smoking risk assessment performed?: Yes Alcohol Intake: never Substance use type: does not use Adopted: No Caregiver/Support person: Yes (mother) Foster care: No Household members: other Details: lives with brother Housing: house Number of Children: 0 number of grandchildren: 0 Education Level: high school Do you need help understanding health information?: Often 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 Pets and animals: No How often do you talk on the phone with friends or family?: twice per week How often do you get together with friends or relatives?: three or more times per week Do you belong to any clubs or organized social groups?: no Panel score (0-1 are the most socially isolated patients): 1 Jyotsna/Episcopalian: Judaism Special jyotsna needs: No Seatbelt use: always Drive intox or ride w/intox school bus driver/mechanic: No Water heater temp set <120 deg: Yes Working smoke detector in home: Yes Fire extinguisher in home: Yes Carbon monox detector in home: Yes Victim of physical abuse: No Victim of emotional abuse: No Victim of sexual abuse: No Additional Social history: LIVE W/ PARENTS IN [facility] Allergies and Home Medications Allergies Allergy/AdvReac Type Severity Reaction Status Date / Time Penicillins Allergy Unknown unknown Verified 11/13/23 20:38 Home Medications Medication Instructions Recorded Confirmed Type cholecalciferol (vitamin D3) 25 1,000 unit PO DAILY ##30 09/23/12 11/13/23 History mcg (1,000 unit) capsule multivitamin (Daily Multi-Vitamin 1 ea PO 09/23/12 11/04/23 History tablet) folic acid 1 mg tablet 1 mg PO DAILY #90 tab-caps 08/23/23 11/13/23 Rx atorvastatin 40 mg tablet 40 mg PO QHS #90 tabs 09/20/23 11/13/23 Rx sulfasalazine 500 mg tablet 500 mg PO BID #180 tabs 10/14/23 11/13/23 Rx Exam Narrative Exam Narrative: General: Patient appears alert but wanders in speech, he appears older than stated age. He is disheveled. He has abnormal speech pattern which appears to be chronic and not acute. He is alert and oriented at least to person and place. He is in no acute distress. He does follow commands fairly well. HEENT: Normocephalic, coarsened facial features, bruising over the right face which appears subacute. Eyes with pupils equal and reactive to light symmetrically, extraocular movement intact without nystagmus and sclera anicteric. Oropharynx with slightly dry mucosa and very poor dentition with discolored teeth and gingival swelling. Tongue does protrude to midline. Patient gag reflex was not checked and speech therapy will evaluate for swallow. Neck: Supple without JVD. Auscultated carotid bruits bilaterally. Back: Stooped posture without CVA tenderness. Lungs: Bronchovesicular sounds diffusely otherwise clear with fair aeration and no focalizing rales or rhonchi. No expiratory wheeze. Heart: Regular rate and rhythm with no appreciable murmur or gallop. Chest: No tenderness over the sternal area but dried vomitus over his chest after vomiting when attempting to take atorvastatin. Abdomen: Obese contour, soft and nontender to palpation no palpable hepatosplenomegaly. Bowel sounds positive all quadrants. Genitalia/rectal: Exam deferred. Extremities: Without clubbing, cyanosis or pitting edema with nonpitting edema both lower extremities. Patient moves all extremities well though he appears generally weak. Fair capillary refill. Skin: Slightly pale, rough texture, warm and dry. Vesicular rash over right arm with increased redness and warmth to touch. Neuro: Cranial nerves II through XII appear grossly intact. Slightly decreased strength of the safety specialist on the right and decreased strength plantar dorsiflexion on the right which was not noted in the ED having reported 5 out of 5 strength bilaterally. Patient does have somewhat garbled speech which appears to be part of his mental delay. No tremor. No Babinski's. DTRs are physiologic and symmetrical grossly. Cerebellar testing was not performed. Psych: Flattened affect with wandering speech and mood slightly euphoric. No abnormal thought processes manifested the patient does at times has tangential speech patterns with topic wandering. Remote and recent memory not testable with patient difficult to understand. Results Imaging Imaging Studies: Exam: CTA Head Without And With Contrast, Arteriography Exam date and time: 11/13/2023 10:10 PM Age: 63 years old Clinical indication: Other: Falling x2 days COMPARISON: No relevant prior studies available. FINDINGS: Limitations: Examination is limited by motion artifact. ANTERIOR CIRCULATION: Right internal carotid artery: Intracranial segment is patent with no significant stenosis or occlusion. No aneurysm. Right middle cerebral artery: No occlusion or significant stenosis. No aneurysm. Right anterior cerebral artery: No occlusion or significant stenosis. No aneurysm. Left internal carotid artery: Intracranial segment is patent with no significant stenosis. No aneurysm. Left middle cerebral artery: No occlusion or significant stenosis. No aneurysm. Left anterior cerebral artery: No occlusion or significant stenosis. No aneurysm. POSTERIOR CIRCULATION: Right vertebral artery: No occlusion or significant stenosis. No aneurysm. Left vertebral artery: No occlusion or significant stenosis. No aneurysm. Basilar artery: No occlusion or significant stenosis. No aneurysm. Right posterior cerebral artery: No occlusion or significant stenosis. No aneurysm. Left posterior cerebral artery: Patent and type left posterior cerebral artery. HEAD: Brain: Acute to subacute appearing infarct involving the superior right precentral gyrus. Prominent symmetric calcifications of the basal ganglia and thalami. Mild nonspecific hypodensities of the periventricular and deep subcortical white matter, most likely secondary to chronic microangiopathic ischemic change. No intracranial hemorrhage or extra-axial fluid collection. No evidence of mass effect or midline shift. Cerebral ventricles: No ventriculomegaly. Bones/joints: Unremarkable. Paranasal sinuses: Visualized sinuses are normal. No fluid levels. Mastoid air cells: Visualized mastoids are normal. No mastoid effusion. Soft tissues: Frontal scalp contusions. IMPRESSION: 1. Acute to subacute appearing infarct involving the superior right precentral gyrus. 2. No intracranial arterial occlusion or significant stenosis. 3. Frontal scalp contusions. PROCEDURE INFORMATION: Exam: CTA Neck Without And With Contrast Exam date and time: 11/13/2023 10:10 PM Age: 63 years old Clinical indication: Other: Falling x2 days COMPARISON: No relevant prior studies available. FINDINGS: Right common carotid artery: No significant stenosis. No dissection or occlusion. Right internal carotid artery: Atherosclerotic plaques involving the proximal extracranial right internal carotid artery without evidence of hemodynamically significant stenosis (0% stenosis by NASCET criteria). Right external carotid artery: No occlusion or significant stenosis. Left common carotid artery: No significant stenosis. No dissection or occlusion. Left internal carotid artery: Atherosclerotic plaques within the proximal extracranial left internal carotid artery cause approximately 30 % stenosis by NASCET criteria. Remaining portions of the extracranial left ICA are patent. Left external carotid artery: No occlusion or significant stenosis. Right vertebral artery: No significant stenosis. No dissection or occlusion. Left vertebral artery: No significant stenosis. No dissection or occlusion. Right subclavian artery: Aberrant origin of the right subclavian artery. Soft tissues: Unremarkable. Bones/joints: No acute fracture. IMPRESSION: No occlusion or severe stenosis in the arteries of the neck. Exam: XR Chest Exam date and time: 11/13/2023 10:25 PM Age: 63 years old Clinical indication: Possible sepsis, source unknown TECHNIQUE: Imaging protocol: Radiologic exam of the chest. Views: 1 view. COMPARISON: CT BRAIN NECK CTA 11/13/2023 10:10 PM FINDINGS: Lungs: No focal areas of consolidation. Pleural spaces: No pleural effusion. No pneumothorax. Heart/Mediastinum: Cardiac and mediastinal silhouettes are unremarkable. Bones/joints: No acute osseus lesion or fracture. IMPRESSION: No acute cardiopulmonary findings. Labs 11/14/23 06:40 11/14/23 06:40 Labs: Laboratory Results - last 24 hr 11/13/23 11/13/23 20:34 20:50 WBC 6.96 RBC 3.33 L Hgb 11.2 L Hct 32.1 L MCV 96 H MCH 33.6 H MCHC 34.9 RDW 14.2 H Plt Count 110 L MPV 10.4 Immature Gran % 0.1 Neutrophils % 71.5 Lymphocytes % 12.5 Monocytes % 15.2 Eosinophils % 0.1 Basophils % 0.6 Nucleated RBC % 0.0 Absolute Neutrophils 4.97 Absolute Lymphocytes 0.87 L Absolute Monocytes 1.06 H Absolute Eosinophils 0.01 Absolute Basophils 0.04 ESR 77 H VBG pH 7.45 H VBG pCO2 38 L VBG pO2 42 VBG HCO3 27 VBG Total CO2 24 VBG O2 Saturation 78 VBG Base Excess 3 VBG Lactate 1.3 Sodium 135 L Potassium 3.5 Chloride 100 Carbon Dioxide 26.0 Anion Gap 9.0 BUN 21 H Creatinine 0.7 Est GFR (CKD-EPI 2020) 104.83 Glucose 120 H Calcium 8.5 Magnesium 1.8 Total Bilirubin 1.7 H AST 42 H ALT 38 Alkaline Phosphatase 71 Troponin I 133 H* C-Reactive Protein 4.63 H NT-Pro-B Natriuret Pep 582 H Total Protein 8.5 H Albumin 3.4 Lipase 40 Procalcitonin 0.2 COVID-19 Source Nasopharynx SARS-CoV-2 (PCR) Negative Influenza Type A (PCR) Negative Influenza Type B (PCR) Negative RSV (PCR) Negative Last Vital Signs Temp 36.7 C 11/13/23 22:02 Pulse 74 11/13/23 23:46 Resp 19 11/13/23 23:46 BP 129/54 L 11/13/23 23:46 Pulse Ox 94 11/13/23 23:46 Time Spent Time spent with Patient: >75 minutes Time was spent: preparing to see the patient(eg.review tests), ordering medications,tests, procedures, referring, communicating with other health home health aide caregiver, indepentently interpreting results and care coordination
[2023-11-13 23:54] LABS: Bacteria Rare HPF (Negative); C & S Indicated? No; Casts Negative LPF (Negative); Crystals Negative HPF (Negative); Epithelial Cells Few HPF (Negative); Mucus Negative (Negative); RBC Negative HPF (0-2); WBC 0-2 HPF (0-5)
[2023-11-14] VITALS (31 sets, daily range): BP systolic 109–143; BP diastolic 38–87; PULSE 66–103; RESP 14–28; TEMP 36.7–40.3; O2SAT 89–96
[2023-11-14 00:01] LABS: Troponin I 289 ng/L (< or =60)
[2023-11-14] MEDS: Aspirin 325 MG TAB PO (00:04)
[2023-11-14] MEDS: Normal Saline 1,000 ML 100 ML IV ×2 (01:10→11:52)
[2023-11-14] MEDS: Ondansetron 4 MG/2 ML VIAL IVP (06:01)
[2023-11-14 07:05] LABS: HCT 31.7 % (40.0-50.0); HGB 10.9 g/dL (13.5-17.5); MCH 33.4 pg (27.0-33.0); MCHC 34.4 % (32.0-36.0); MCV 97 fL (80-95); MPV 10.8 fL (8.0-11.0); Platelet Count 100 10^3/uL (130-400); RBC 3.26 10^6/uL (4.36-5.78); RDW 14.4 % (11.8-14.1); RDW-SD 51.5 fL; WBC 8.59 10^3/uL (4.4-10.8)
[2023-11-14 07:16] LABS: INR 1.3 (0.9-1.1); Prothrombin Time 12.5 sec (9.1-11.1)
[2023-11-14 07:28] LABS: ALT 33 U/L (16-63); AST 46 U/L (15-37); Albumin 3.1 g/dL (3.4-5.0); Alkaline Phosphatase 66 U/L (46-116); Anion Gap 9.8 mmol/L (3-11); BUN 24 mg/dL (7-18); Bilirubin, Total 1.9 mg/dL (0.2-1.0); CO2 26.2 mmol/L (21.0-32.0); CREATININE 0.8 mg/dL (0.70-1.30); Calcium 8.2 mg/dL (8.5-10.1); Chloride 104 mmol/L (98-107); Estimated GFR 100.69 (mL/min/1.73m2); Glucose 110 mg/dL (74-106); Magnesium 1.8 mg/dL (1.8-2.4); Sodium 140 mmol/L (136-145); Total Protein 7.9 g/dL (6.4-8.2)
[2023-11-14 07:51] LABS: Troponin I 337 ng/L (< or =60)
[2023-11-14] MEDS: ACETAMINOPHEN 1,000 MG/100 ML BTL 400 MG IVPB (08:44)
[2023-11-14] MEDS: cefTRIAXone 2 GM/50 ML BAG IVPB (08:52)
[2023-11-14] MEDS: Normal Saline Flush 10 ML SYR IVP ×3 (08:53→20:54)
[2023-11-14 12:15] LABS: Troponin I 6698 ng/L (< or =60)
--- NOTE | 2023-11-14 12:15 | RT.EKG_ITS ---
APPROVED REPORT Exam: Resting ECG Reason for Exam: NSTEMI Patient Location: I HR:75 bpm ECG Measurements Heart Rate 75 AXIS GA 160 P 41 QRSd 97 QRS 49 QT 441 T 43 QTc 493 Conclusion Sinus rhythm...normal P axis, V-rate 50- 99 Borderline prolonged QT interval...QTc >475mS
[2023-11-14 12:33] LABS: Lab Add On Test DONE
[2023-11-14 12:54] LABS: NT-proBNP 963 pg/mL (<300)
[2023-11-14 14:52] LABS: Troponin I 13291 ng/L (< or =60)
--- NOTE | 2023-11-14 14:58 | W.PM.PROGNOT ---
Date of Service Date of service: 11/14/23 Time of Service: 13:00 Assessment and Plan Assessment and plan (1) Elevated troponin level not due myocardial infarction: Status: Acute Assessment and plan: ddx: NSTEMI, Takotsubo, type II demand ischemia I performed bedside POCUS echo and did not find any wall motion abnormalities to suggest Takotsubo CM nor NSTEMI however there is a bright echogenic focus on the anterolateral papillary muscle which may be calcification but I am concerned this may be a vegetation. I did not see anything on the mitral leaflets nor on the aoritc cusps. I am concerned that given his cellulitis of his right upper humerus and the fevers to 40C today along w/ the drastic elevation of his troponin levels and his CVA w/out evidence for cerebrovascular atherosclerotic narrowing eithre in the cervical vessels or the cerebrovascular vessels that his CVA may have been cardioembolic possible septic cause. I think patient should be considered for transfer for JACKIE evaluation, he needs continued antibiotics, I have expanded coverage from Ceftriaxone to also add Vancomycin. I did consult w/ [facility] who reviewed everything and thinks he should be on DAPT and heparin but agrees this is probably type II demand ischemia and would defer to neurology as to heparin and DAPT. Patient is already on ASA and atorvastatin. I am awaiting tele-neurology consult to discuss further evaluation. Patient is already scheduled for MRI brain, formal echo w/ bubble study tomorrow. Critical care time spent interviewing and examining the patient, reviewing studies, discussing case with patient's nurse and consulting physicians was 90 minutes (2) Cerebrovascular accident: Status: Acute Assessment and plan: as above. I am not finding any focal neurologic deficits to correspond to his CT scan however historically the patient did have some problems with gait imbalance and left-sided weakness which would correlate to the CT findings. Patient has been started on high-dose atorvastatin along with aspirin. I am awaiting neurology consultation to discuss further to add dual antiplatelet therapy including Plavix along with aspirin for 21 days. Cardiology suggested we might want to anticoagulate him with heparin for concern of an embolic stroke. Depending on neurology's recommendation we will determine how we proceed with dual antiplatelet therapy versus anticoagulation. I think a lot will hinge on tomorrow's MRI scan of his brain as to whether he had a thrombotic stroke versus a cardioembolic stroke. Furthermore this is complicated by his fevers and his cellulitis of his right arm. I am entertaining the possibility of a septic embolic stroke. Qualifiers: CVA mechanism: occlusion Laterality of affected vessel: right Precerebral and cerebral artery: middle cerebral artery Qualified Code(s): I63.511 - Cerebral infarction due to unspecified occlusion or stenosis of right middle cerebral artery (3) Elevated LFTs: Status: Acute Assessment and plan: mildly transaminase elevation, will trend (4) Thrombocytopenia: Status: Acute Subjective Subjective Interval history since last seen: patient denies any CP or dyspnea or headache. Per my discussion w/ his brother, the patient had couple of falls the first one occurring around 8 pm on Wednesday evening while going to get his laundry and second one aroun 10 pm. Per his brother he got him back to bed but on Wednesday the brother noted the patient's gait was off balance and he was listing to the right which concerned him for risk for another fall at which point he was sent to the ED. Per his brother no other focal deficits were noted such as dysarthric speech or visual impairment. Work up last night included CTA head and neck which revealed no hemodynamic stenosis of his cervical or cerebral vessels but demonstrated evidence of recent CVA of the right superior precentral gyrus. Patient's admission EKG did not show any arrhythmias nor any evidence for acute NC however, troponin I on admission was elevated at 133 and climbed overnight to 337 but now is up to 6700. I have repeated his EKG and again am not seeing acute ischemia. Patient denies any chest pain or pressure. I told his brother that I want to discuss his case w/ both cardiology and neurology. [facility] cards was contacted last night and they felt this was type II demand ischemia but that was when the troponin ws in the 200 to 300 range. His brother indicated that he is very reluctant to transfer the patient anywhere to tertiary center d/t bad experiences they had w/ [facility] with their mother's care. Exam Narrative Exam Narrative: Ahsan is alert and responsive he is oriented to person although it is difficult to determine orientation terms of time or place. He denies any pain specifically denies any chest pain or pressure or dyspnea. HEENT is remarkable for some bruising over the right side of his face otherwise no facial asymmetry no dysarthric speech full extraocular motion intact visual salguero grossly intact to confrontation Neck is supple nontender normal carotid pulses I did not appreciate any bruits Lungs are clear to auscultation Heart is regular rate and rhythm no appreciable murmur rub or gallop Abdomen soft nontender nondistended normal bowel sounds no organomegaly Extremities without peripheral cyanosis or edema. Neuro exam I cannot appreciate any focal cranial nerve deficits he seems to have intact strength in both upper and lower extremities he has good handgrip strength equally good movement of both upper and lower extremities. He gave me good resistance when I had him do hip flexion extension as well as pedal pushes. Sensory exam was grossly intact. Objective Last Vital Signs Temp 38 C H 11/14/23 11:26 Pulse 82 11/14/23 11:26 Resp 18 11/14/23 11:26 BP 110/62 11/14/23 11:26 Pulse Ox 92 11/14/23 11:26 Laboratory Results - last 24 hr 11/13/23 11/13/23 11/13/23 20:34 20:50 23:35 WBC 6.96 RBC 3.33 L Hgb 11.2 L Hct 32.1 L MCV 96 H MCH 33.6 H MCHC 34.9 RDW 14.2 H Plt Count 110 L MPV 10.4 Immature Gran % 0.1 Neutrophils % 71.5 Lymphocytes % 12.5 Monocytes % 15.2 Eosinophils % 0.1 Basophils % 0.6 Nucleated RBC % 0.0 Absolute Neutrophils 4.97 Absolute Lymphocytes 0.87 L Absolute Monocytes 1.06 H Absolute Eosinophils 0.01 Absolute Basophils 0.04 ESR 77 H PT INR VBG pH 7.45 H VBG pCO2 38 L VBG pO2 42 VBG HCO3 27 VBG Total CO2 24 VBG O2 Saturation 78 VBG Base Excess 3 VBG Lactate 1.3 Sodium 135 L Potassium 3.5 Chloride 100 Carbon Dioxide 26.0 Anion Gap 9.0 BUN 21 H Creatinine 0.7 Est GFR (CKD-EPI 2020) 104.83 Glucose 120 H Calcium 8.5 Magnesium 1.8 Total Bilirubin 1.7 H AST 42 H ALT 38 Alkaline Phosphatase 71 Troponin I 133 H* 289 H* C-Reactive Protein 4.63 H NT-Pro-B Natriuret Pep 582 H Total Protein 8.5 H Albumin 3.4 Lipase 40 Procalcitonin 0.2 TSH Urine Color Urine Clarity Urine pH Ur Specific [place] Urine Protein Urine Ketones Urine Blood Urine Nitrite Urine Bilirubin Urine Urobilinogen Ur Leukocyte Esterase Urine RBC Urine WBC Ur Epithelial Cells Urine Crystals Urine Bacteria Urine Casts Urine Mucus Ur Culture Indicated? Urine Glucose COVID-19 Source Nasopharynx SARS-CoV-2 (PCR) Negative Influenza Type A (PCR) Negative Influenza Type B (PCR) Negative RSV (PCR) Negative Add-On Test Request 11/13/23 11/14/23 11/14/23 23:47 06:40 11:45 WBC 8.59 RBC 3.26 L Hgb 10.9 L Hct 31.7 L MCV 97 H MCH 33.4 H MCHC 34.4 RDW 14.4 H Plt Count 100 L MPV 10.8 Immature Gran % Neutrophils % Lymphocytes % Monocytes % Eosinophils % Basophils % Nucleated RBC % Absolute Neutrophils Absolute Lymphocytes Absolute Monocytes Absolute Eosinophils Absolute Basophils ESR PT 12.5 H INR 1.3 H VBG pH VBG pCO2 VBG pO2 VBG HCO3 VBG Total CO2 VBG O2 Saturation VBG Base Excess VBG Lactate Sodium 140 Potassium 4.0 Chloride 104 Carbon Dioxide 26.2 Anion Gap 9.8 BUN 24 H Creatinine 0.8 Est GFR (CKD-EPI 2020) 100.69 Glucose 110 H Calcium 8.2 L Magnesium 1.8 Total Bilirubin 1.9 H AST 46 H ALT 33 Alkaline Phosphatase 66 Troponin I 337 H* 6698 H* C-Reactive Protein NT-Pro-B Natriuret Pep 963 H Total Protein 7.9 Albumin 3.1 L Lipase Procalcitonin TSH 2.00 Urine Color Yellow Urine Clarity Clear Urine pH 5.5 Ur Specific [place] 1.025 Urine Protein 100 H Urine Ketones Negative Urine Blood Negative Urine Nitrite Negative Urine Bilirubin Negative Urine Urobilinogen 1.0 H Ur Leukocyte Esterase Negative Urine RBC Negative Urine WBC 0-2 Ur Epithelial Cells Few Urine Crystals Negative Urine Bacteria Rare Urine Casts Negative Urine Mucus Negative Ur Culture Indicated? No Urine Glucose Negative COVID-19 Source SARS-CoV-2 (PCR) Influenza Type A (PCR) Influenza Type B (PCR) RSV (PCR) Add-On Test Request 11/14/23 11/14/23 12:20 13:55 WBC RBC Hgb Hct MCV MCH MCHC RDW Plt Count MPV Immature Gran % Neutrophils % Lymphocytes % Monocytes % Eosinophils % Basophils % Nucleated RBC % Absolute Neutrophils Absolute Lymphocytes Absolute Monocytes Absolute Eosinophils Absolute Basophils ESR PT INR VBG pH VBG pCO2 VBG pO2 VBG HCO3 VBG Total CO2 VBG O2 Saturation VBG Base Excess VBG Lactate Sodium Potassium Chloride Carbon Dioxide Anion Gap BUN Creatinine Est GFR (CKD-EPI 2020) Glucose Calcium Magnesium Total Bilirubin AST ALT [place]kaline [place] T[place] [address] H* C-Reactive Protein NT-Pro-B Natriuret Pep Total Protein Albumin Lipase Procalcitonin TSH Urine Color Urine Clarity Urine pH Ur Specific [place] Urine Protein Urine Ketones Urine Blood Urine Nitrite Urine Bilirubin Urine Urobilinogen Ur Leukocyte Esterase Urine RBC Urine WBC Ur Epithelial Cells Urine Crystals Urine Bacteria Urine Casts Urine Mucus Ur Culture Indicated? Urine Glucose COVID-19 Source SARS-CoV-2 (PCR) Influenza Type A (PCR) Influenza Type B (PCR) RSV (PCR) Add-On Test Request DONE Time Spent with Patient Time Spent with Patient: >50 minutes Time was spent: preparing to see the patient(eg.review tests), ordering medications,tests, procedures, referring, communicating with other health aged or disabled carer (Calls to [facility] cardiology as well as teleneurology), indepentently interpreting results, counseling the patient and care coordination
--- NOTE | 2023-11-14 15:35 | W.PC.ACHO ---
Registration Status: ADM IN Primary Language: Preferred Language: Syriac ED Information & Data Chief Complaint Fall/Non TraumaCriteria 11/13/23 20:43 Triage Note Pt has reportedly had 11/13/23 20:25 increased weakness with multiple falls over the last couple days. Pt speech appears impaired, but EMS reports this is baseline. Pt has temp, tachycardic and large hot area of his skin on right upper arm, lateral. Pt also incontinent on arrival. (Last Reviewed 04/11/18 @ 14:11 by Lizzette Monk LPN) H/O colonoscopy (08/12/83) Most Recent Vital Signs Temperature 36.8 C 11/14/23 14:57 Temperature Source Temporal Artery Scan 11/14/23 14:57 Pulse 74 11/14/23 14:57 Pulse Rhythm Regular 11/14/23 09:20 Pulse 73 11/14/23 15:09 Respiratory Rate 18 11/14/23 15:09 Respiratory Effort Normal, Non-Labored 11/14/23 14:57 Respiratory Depth Normal 11/14/23 14:57 Respiratory Pattern Normal 11/14/23 14:57 Blood Pressure 115/55 L 11/14/23 14:57 Blood Pressure Mean 75 11/14/23 14:57 Blood Pressure Position Supine 11/14/23 14:57 Pulse Oximetry 94 11/14/23 15:09 Oxygen Delivery Method Room Air 11/14/23 14:57 Oxygen Flow Rate 0 11/14/23 14:57 Pain Level 0 11/14/23 14:57 Comment RN informed 11/14/23 11:26 Allergies Penicillins Allergy (Unknown, Verified 11/13/23 20:38) unknown father with severe allergy. So never used. Active Medications Generic Name Dose Route Start Last Admin Trade Name Freq PRN Reason Stop Dose Admin Aspirin 81 mg 11/14/23 08:30 11/14/23 09:29 Aspirin 81 Mg Chew PO Not Given DAILY [facility] Cholecalciferol 1,000 units 11/14/23 08:30 11/14/23 09:29 Cholecalciferol (Vitamin D3) 1,000 Unit Tab PO Not Given DAILY [facility] Folic Acid 1 mg 11/14/23 08:30 11/14/23 09:29 Folic Acid 1 Mg Tab PO Not Given DAILY [facility] Heparin Sodium (Porcine) 5,000 units 11/14/23 06:00 11/14/23 05:50 Heparin 5,000 Units/Ml Vial SC Not Given Q8H AGNES Sodium Chloride 1,000 mls @ 100 mls/hr 11/13/23 23:45 11/14/23 11:52 Saline 1000ml Bag IV 100 mls/hr INFUSION AGNES Administration Ceftriaxone Sodium/Dextrose 2 gm in 50 mls @ 100 mls/hr 11/14/23 08:00 11/14/23 09:53 Rocephin IVPB Infused Q24H AGNES Infusion Acetaminophen 1,000 mg in 100 mls @ 400 mls/hr 11/14/23 08:23 11/14/23 09:52 Ofirmev IVPB Infused Q6H PRN PRN Infusion Multivitamins 1 tab 11/14/23 08:30 11/14/23 09:29 Multivitamin Tab PO Not Given DAILY AGNES Sodium Chloride 0 ml 11/14/23 08:30 11/14/23 08:53 Normal Saline Flush 10 Ml Syr IVP 10 ml BID AGNES Administration Sulfasalazine 500 mg 11/14/23 08:30 11/14/23 09:29 Sulfasalazine 500 Mg Tab PO Not Given BID AGNES IV IV Catheter Type [Left Peripheral IV Antecubital] IV Catheter Gauge [Left 18 Antecubital] Diet Orders Category Date Time Status Heart Healthy Eating [DIET] Nutrition 11/14/23 Dinner Active Diagnostics 11/14/23 11/14/23 11/14/23 Range/Units 14:25 13:55 12:20 WBC (4.4-10.8) 10^3/uL RBC (4.36-5.78) 10^6/uL Hgb (13.5-17.5) g/dL Hct (40.0-50.0) % MCV (80-95) fL MCH (27.0-33.0) pg MCHC (32.0-36.0) % RDW (11.8-14.1) % Plt Count (130-400) 10^3/uL MPV (8.0-11.0) fL Immature Gran % Neutrophils % Lymphocytes % Monocytes % Eosinophils % Basophils % Nucleated RBC % (0.0-0.3) % Absolute Neutrophils (1.2-6.7) 10^3/uL Absolute Lymphocytes (1.2-3.4) 10^3/uL Absolute Monocytes (0.1-0.8) 10^3/uL Absolute Eosinophils (0.0-0.7) 10^3/uL Absolute Basophils (0.0-0.2) 10^3/uL ESR (0-20) mm/hr PT (9.1-11.1) sec INR (0.9-1.1) VBG pH (7.31-7.41) VBG pCO2 (41-51) mmHg VBG pO2 mmHg VBG HCO3 (23-28) mmol/L VBG Total CO2 (24-29) mmol/L VBG O2 Saturation % VBG Base Excess (-2-3) mmol/L VBG Lactate (0.6-1.4) mmol/L Sodium (136-145) mmol/L Potassium (3.5-5.1) mmol/L Chloride (98-107) mmol/L Carbon Dioxide (21.0-32.0) mmol/L Anion Gap (3-11) mmol/L BUN (7-18) mg/dL Creatinine (0.70-1.30) mg/dL Est GFR (CKD-EPI 2020) (mL/min/1.73m2) Glucose (74-106) mg/dL Calcium (8.5-10.1) mg/dL Magnesium (1.8-2.4) mg/dL Total Bilirubin (0.2-1.0) mg/dL AST (15-37) U/L ALT (16-63) U/L Alkaline Phosphatase (46-116) U/[place] [address]309 H* (< or =60) ng/L C-Reactive Protein (<or=0.5) mg/dL NT-Pro-B Natriuret Pep (<300) pg/mL Total Protein (6.4-8.2) g/dL Albumin (3.4-5.0) g/dL Lipase (16-77) U/L Procalcitonin ng/mL TSH (0.36-3.74) uIU/mL Urine Color (Yellow) Urine Clarity (Clear) Urine pH (5-8) Ur Specific [place] (1.005-1.025) Urine Protein (Neg-Trace) mg/dL Urine Ketones (Negative) mg/dL Urine Blood (Negative) Urine Nitrite (Negative) Urine Bilirubin (Negative) Urine Urobilinogen (Up to 0.2) mg/dL Ur Leukocyte Esterase (Negative) Urine RBC (0-2) HPF Urine WBC (0-5) HPF Ur Epithelial Cells (Negative) HPF Urine Crystals (Negative) HPF Urine Bacteria (Negative) HPF Urine Casts (Negative) LPF Urine Mucus (Negative) Ur Culture Indicated? Urine Glucose (Negative) mg/dL COVID-19 Source SARS-CoV-2 (PCR) (Negative) Influenza Type A (PCR) (Negative) Influenza Type B (PCR) (Negative) RSV (PCR) (Negative) Ur Strep pneumoniae Ag Pending Add-On Test Request DONE 11/14/23 11/14/23 11/13/23 Range/Units 11:45 06:40 23:47 WBC 8.59 (4.4-10.8) 10^3/uL RBC 3.26 L (4.36-5.78) 10^6/uL Hgb 10.9 L (13.5-17.5) g/dL Hct 31.7 L (40.0-50.0) % MCV 97 H (80-95) fL MCH 33.4 H (27.0-33.0) pg MCHC 34.4 (32.0-36.0) % RDW 14.4 H (11.8-14.1) % Plt Count 100 L (130-400) 10^3/uL MPV 10.8 (8.0-11.0) fL Immature Gran % Neutrophils % Lymphocytes % Monocytes % Eosinophils % Basophils % Nucleated RBC % (0.0-0.3) % Absolute Neutrophils (1.2-6.7) 10^3/uL Absolute Lymphocytes (1.2-3.4) 10^3/uL Absolute Monocytes (0.1-0.8) 10^3/uL Absolute Eosinophils (0.0-0.7) 10^3/uL Absolute Basophils (0.0-0.2) 10^3/uL ESR (0-20) mm/hr PT 12.5 H (9.1-11.1) sec INR 1.3 H (0.9-1.1) VBG pH (7.31-7.41) VBG pCO2 (41-51) mmHg VBG pO2 mmHg VBG HCO3 (23-28) mmol/L VBG Total CO2 (24-29) mmol/L VBG O2 Saturation % VBG Base Excess (-2-3) mmol/L VBG Lactate (0.6-1.4) mmol/L Sodium 140 (136-145) mmol/L Potassium 4.0 (3.5-5.1) mmol/L Chloride 104 (98-107) mmol/L Carbon Dioxide 26.2 (21.0-32.0) mmol/L Anion Gap 9.8 (3-11) mmol/L BUN 24 H (7-18) mg/dL Creatinine 0.8 (0.70-1.30) mg/dL Est GFR (CKD-EPI 2020) 100.69 (mL/min/1.73m2) Glucose 110 H (74-106) mg/dL Calcium 8.2 L (8.5-10.1) mg/dL Magnesium 1.8 (1.8-2.4) mg/dL Total Bilirubin 1.9 H (0.2-1.0) mg/dL AST 46 H (15-37) U/L ALT 33 (16-63) U/L Alkaline Phosphatase 66 (46-116) U/L Troponin I 6698 H* 337 H* (< or =60) ng/L C-Reactive Protein (<or=0.5) mg/dL NT-Pro-B Natriuret Pep 963 H (<300) pg/mL Total Protein 7.9 (6.4-8.2) g/dL Albumin 3.1 L (3.4-5.0) g/dL Lipase (16-77) U/L Procalcitonin ng/mL TSH 2.00 (0.36-3.74) uIU/mL Urine Color Yellow (Yellow) Urine Clarity Clear (Clear) Urine pH 5.5 (5-8) Ur Specific [place] 1.025 (1.005-1.025) Urine Protein 100 H (Neg-Trace) mg/dL Urine Ketones Negative (Negative) mg/dL Urine Blood Negative (Negative) Urine Nitrite Negative (Negative) Urine Bilirubin Negative (Negative) Urine Urobilinogen 1.0 H (Up to 0.2) mg/dL Ur Leukocyte Esterase Negative (Negative) Urine RBC Negative (0-2) HPF Urine WBC 0-2 (0-5) HPF Ur Epithelial Cells Few (Negative) HPF Urine Crystals Negative (Negative) HPF Urine Bacteria Rare (Negative) HPF Urine Casts Negative (Negative) LPF Urine Mucus Negative (Negative) Ur Culture Indicated? No Urine Glucose Negative (Negative) mg/dL COVID-19 Source SARS-CoV-2 (PCR) (Negative) Influenza Type A (PCR) (Negative) Influenza Type B (PCR) (Negative) RSV (PCR) (Negative) Ur Strep pneumoniae Ag Add-On Test Request 11/13/23 11/13/23 11/13/23 Range/Units 23:35 20:50 20:34 WBC 6.96 (4.4-10.8) 10^3/uL RBC 3.33 L (4.36-5.78) 10^6/uL Hgb 11.2 L (13.5-17.5) g/dL Hct 32.1 L (40.0-50.0) % MCV 96 H (80-95) fL MCH 33.6 H (27.0-33.0) pg MCHC 34.9 (32.0-36.0) % RDW 14.2 H (11.8-14.1) % Plt Count 110 L (130-400) 10^3/uL MPV 10.4 (8.0-11.0) fL Immature Gran % 0.1 Neutrophils % 71.5 Lymphocytes % 12.5 Monocytes % 15.2 Eosinophils % 0.1 Basophils % 0.6 Nucleated RBC % 0.0 (0.0-0.3) % Absolute Neutrophils 4.97 (1.2-6.7) 10^3/uL Absolute Lymphocytes 0.87 L (1.2-3.4) 10^3/uL Absolute Monocytes 1.06 H (0.1-0.8) 10^3/uL Absolute Eosinophils 0.01 (0.0-0.7) 10^3/uL Absolute Basophils 0.04 (0.0-0.2) 10^3/uL ESR 77 H (0-20) mm/hr PT (9.1-11.1) sec INR (0.9-1.1) VBG pH 7.45 H (7.31-7.41) VBG pCO2 38 L (41-51) mmHg VBG pO2 42 mmHg VBG HCO3 27 (23-28) mmol/L VBG Total CO2 24 (24-29) mmol/L VBG O2 Saturation 78 % VBG Base Excess 3 (-2-3) mmol/L VBG Lactate 1.3 (0.6-1.4) mmol/L Sodium 135 L (136-145) mmol/L Potassium 3.5 (3.5-5.1) mmol/L Chloride 100 (98-107) mmol/L Carbon Dioxide 26.0 (21.0-32.0) mmol/L Anion Gap 9.0 (3-11) mmol/L BUN 21 H (7-18) mg/dL Creatinine 0.7 (0.70-1.30) mg/dL Est GFR (CKD-EPI 2020) 104.83 (mL/min/1.73m2) Glucose 120 H (74-106) mg/dL Calcium 8.5 (8.5-10.1) mg/dL Magnesium 1.8 (1.8-2.4) mg/dL Total Bilirubin 1.7 H (0.2-1.0) mg/dL AST 42 H (15-37) U/L ALT 38 (16-63) U/L Alkaline Phosphatase 71 (46-116) U/L Troponin I 289 H* 133 H* (< or =60) ng/L C-Reactive Protein 4.63 H (<or=0.5) mg/dL NT-Pro-B Natriuret Pep 582 H (<300) pg/mL Total Protein 8.5 H (6.4-8.2) g/dL Albumin 3.4 (3.4-5.0) g/dL Lipase 40 (16-77) U/L Procalcitonin 0.2 ng/mL TSH (0.36-3.74) uIU/mL Urine Color (Yellow) Urine Clarity (Clear) Urine pH (5-8) Ur Specific [place] (1.005-1.025) Urine Protein (Neg-Trace) mg/dL Urine Ketones (Negative) mg/dL Urine Blood (Negative) Urine Nitrite (Negative) Urine Bilirubin (Negative) Urine Urobilinogen (Up to 0.2) mg/dL Ur Leukocyte Esterase (Negative) Urine RBC (0-2) HPF Urine WBC (0-5) HPF Ur Epithelial Cells (Negative) HPF Urine Crystals (Negative) HPF Urine Bacteria (Negative) HPF Urine Casts (Negative) LPF Urine Mucus (Negative) Ur Culture Indicated? Urine Glucose (Negative) mg/dL COVID-19 Source Nasopharynx SARS-CoV-2 (PCR) Negative (Negative) Influenza Type A (PCR) Negative (Negative) Influenza Type B (PCR) Negative (Negative) RSV (PCR) Negative (Negative) Ur Strep pneumoniae Ag Add-On Test Request 11/13/23 20:50 Blood Culture - Pending Blood 11/13/23 20:34 Blood Culture - Pending Blood [id number] Documentation Fingerstick Glucose Start: 11/13/23 20:34 Freq: Status: Active Protocol: Activity Type Activity Date Activity User E-sign Co-sign Detail Recorded Client Recorded Date Recorded By Document 11/13/23 20:33 MARY DATIAGO(3) [id number] 11/13/23 20:34 BKG DAEMON(4) Intake and Output - 24 Hour Total 11/13/23 20:05 thru 11/14/23 14:57 Intake Total 2350 Output Total 225 Balance 2125 Weight 72 kg Intake: IV 2350 Output: Urine 225 Other: Urine Color Straw Urine Appearance Clear Urine Odor Normal Comment pT dry at this time; RN applied condom cath for collection of UA - with next void Falls Risk Assessment History of Falls Admit Due to Fall 11/14/23 14:57 Contributing Factors Impairments 11/14/23 14:57 Ambulatory Aids Independent 11/14/23 14:57 Tubes/Lines With any additional score 11/14/23 14:57 Gait Evaluation W/any additional score 11/14/23 14:57 Cognition No cognitive impairment 11/14/23 14:57 Fall Total Score 68 11/14/23 14:57 Level of Risk High Risk 11/14/23 14:57 Problems (Last Reviewed 04/11/18 @ 14:11 by Lizzette Monk LPN) Elevated LFTs (Acute) Thrombocytopenia (Acute) Elevated troponin level not due myocardial infarction (Acute) Cellulitis (Acute) Cerebrovascular accident (Acute) Hyperlipidemia (Chronic 09/17/07) 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 Information / Comments: Report received from:Katherine Rojas/handle bar assembler
--- NOTE | 2023-11-14 15:45 | RT.EKG_ITS ---
APPROVED REPORT Exam: Resting ECG Reason for Exam: elevated troponin over 13,000 Patient Location: I HR:74 bpm ECG Measurements Heart Rate 74 AXIS SD 158 P 48 QRSd 100 QRS 46 QT 453 T 61 QTc 503 Conclusion Sinus rhythm...normal P axis, V-rate 50- 99 Prolonged QT interval...QTc >500mS
--- NOTE | 2023-11-14 16:45 | PDOC.CMIN ---
Date of service: 11/14/23 Care Management Initial Assmt Initial Assessment REASON FOR HOSPITALIZATION:: Right CVA PREVIOUS FUNCTIONAL STATUS/SOCIAL/FAMILY SUPPORTS:: Ahsan has a guardian Brandon listed in chart. CURRENT FUNCTIONAL STATUS:: Ahsan was sitting up in bed after being transferred to ICU due to cardio concerns. CM was not able to engage with Pt. Per MD echo results are pending, MD was hoping to review with brother before he leaves. Brother was not in the room when CM entered. Per RN, brother stepped out for a nurses' association executive director break. CM following. ADVANCE DIRECTIVES:: None on file Has patient been provided with info about the portal/API?: Yes Did the patient sign up for the portal?: No CODE STATUS:: Full Code INSURANCE COVERAGE / FINANCIAL ISSUES:: Medicare Part A & B Medicaid of [place] PRIMARY CARE PHYSICIAN:: Guy Dias , POTENTIAL DISCHARGE NEEDS:: Follow up appointments PATIENT/FAMILY EDUCATION NEEDS:: Review discharge instructions and limitations, discussion of self care needs including Ask Me Three ANTICIPATED BARRIERS TO DISCHARGE:: None TRANSPORTATION:: Via private vehicle by family. PLAN:: [place] discharge plan is unknown at this time and is dependent on disposition. He is being closely monitored in ICU at this time. Further planning to come. CM following. [facility] All Active Problems (Updated 11/15/23 @ 09:36 by Robles Carreon MD) Rhabdomyolysis (Acute) Ulcer of left heel (Acute) Elevated LFTs (Acute) Thrombocytopenia (Acute) Elevated troponin level not due myocardial infarction (Acute) Cellulitis (Acute) Cerebrovascular accident (Acute) Cerumen impaction (Acute) Arthritis of knee, left (Acute) DEPO MEDROL 11/04/23 Neck muscle strain (Acute) Testicular hypofunction (Acute 10/06/11) Regional enteritis of unspecified site (Acute 01/15/83) Colonoscopy Dr Marcy Suero 08/12/1983; FAMILY DECLINES REPEAT Hyperlipidemia (Chronic 09/17/07) LDL >200; RISK 6% CALCULATED 09/2007; RX LIFESTYLE, FAMILY DECLINES MEDS; recalculated 5.4% no med indicated 05/2014; LDL >190: rec statin based on LDL; Risk calculated 06/2016 7.8% would not merit rx. 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 Crohn's disease of both small and large intestine with other complication (Chronic) perianal inflammation; compound topical Anemia (Chronic 09/27/08) Hb 12.4 in 2008; mild normocytic; persists, likley due to sulfasalazine; normal iron, B12 Surgical History H/O colonoscopy (08/12/83) Family History Mother Ulcerative colitis 08/2010 Maternal Aunt Diabetes Paternal Uncle Colon cancer Maternal Grandmother Liver cancer Social History (Updated 09/20/23 @ 13:30 by Sindy Norman) Smoking/Tobacco Use Status: Never Second Hand Exposure: No Smoking risk assessment performed?: Yes Alcohol Intake: never Substance use type: does not use Adopted: No Caregiver/Support person: Yes (mother) Foster care: No Household members: other Details: lives with brother Housing: house Number of Children: 0 number of grandchildren: 0 Education Level: high school Do you need help understanding health information?: Often current occupation: [employer] Pets and animals: No How often do you talk on the phone with friends or family?: twice per week How often do you get together with friends or relatives?: three or more times per week Do you belong to any clubs or organized social groups?: no Panel score (0-1 are the most socially isolated patients): 1 Jyotsna/Cheondoism: Orthodox Special jyotsna needs: No Seatbelt use: always Drive intox or ride w/intox taxi driver supervisor: No Water heater temp set <120 deg: Yes Working smoke detector in home: Yes Fire extinguisher in home: Yes Carbon monox detector in home: Yes Victim of physical abuse: No Victim of emotional abuse: No Victim of sexual abuse: No Additional Social history: LIVE W/ PARENTS IN [facility](Care Management) Screening Will the Patient Participate in the Screening?: Unable to obtain
--- NOTE | 2023-11-14 18:37 | W.POCUS ---
Pocus Exam Limited Cardiac Exam DATE OF EXAM: 11/14/23 TIME OF EXAM: 13:11 PROVIDER THAT PERFORMED THE STUDY: Robles Carreon REASON FOR EXAM: Other (elevated troponin, evaluate for LV dysfunction) indication: elevated troponin VISUALIZED STRUCTURES: four chambers, LVOT and Interventricular septum VIEW OBTAINED: Apical 4-Chamber, Parasternal long-axis, Parasternal short-axis and Subxiphoid PERTINENT FINDINGS/IMPRESSION: No LV dysfunction, No pericardial effusion, No RV dilation and No RV dysfunction INCIDENTAL FINDINGS: Normal LV and RV systolic function, no RWMA, no significant MR, no or AI. There is an echodense area that appears to eminate from the anterolateral papillary muscle that appears to be a calcification, but can not exclude a vegetation. Follow up JACKIE is recommended. Exam complete
[2023-11-14 18:56] LABS: Troponin I 22928 ng/L (< or =60)
[2023-11-14] MEDS: Heparin 5,000 UNITS/ML VIAL 5000 UNITS SC (20:16)
[2023-11-14 20:21] LABS: Lab Add On Test DONE
[2023-11-14] MEDS: Atorvastatin 40 MG TAB 80 MG PO (20:25)
[2023-11-14 20:44] LABS: Creatine Kinase 1812 U/L (39-308)
[2023-11-14] MEDS: VANCOMYCIN/WATER (PEG) 1.75 GM/350 ML BAG IVPB (20:51)
[2023-11-15] VITALS (56 sets, daily range): BP systolic 103–130; BP diastolic 52–78; PULSE 58–88; RESP 13–27; TEMP 36.5–37.8; O2SAT 81–98
[2023-11-15] MEDS: Lactated Ringers 1,000 ML 150 ML IV (05:00)
[2023-11-15 07:57] LABS: Creatine Kinase 1458 U/L (39-308)
[2023-11-15 07:58] LABS: Troponin I 14709 ng/L (< or =60)
--- NOTE | 2023-11-15 08:00 | DI.MRI_ITS ---
Exam(s) MR BRAIN WO EXAM: MR BRAIN WO CLINICAL HISTORY: Acute right CVA on CT TECHNIQUE: Multiplanar multisequence MRI of the brain was performed. COMPARISON: CT CT BRAIN NECK CTA from 11/13/2023 FINDINGS: CEREBRAL PARENCHYMA: There is no evidence of intracranial hemorrhage, mass effect, or shift of midline structures. There are no extra-axial fluid collections. Ventricles are not enlarged or shifted. There is no significant focal signal abnormality in the cerebellar hemispheres nor within the sonu an d midbrain. There is symmetrical T2 signal dropout in the basal ganglia bilaterally consistent with calcification s seen on CT scan. Symmetrical signal abnormality noted in the pulvinar of both thalami, with T1 hyperintensity and T2 h ypointensity. Similar findings also seen in the basal ganglia bilaterally. There is no significant focal signal abnormality evident on diffusion imaging to suggest acute ischem ic event. No abnormal restricted diffusion evident in the right superior precentral gyrus, as sugges gaurang on recent virtual Radiology read PITUITARY GLAND: No mass nor parasellar abnormality. No obvious abnormality in the cavernous sinuses. FLOW VOIDS: The expected flow void are noted. No evidence of obvious aneurysm nor obvious vascular ma lformation. PARANASAL SINUSES: The visualized paranasal sinuses appear unremarkable. No obvious finding ORBITS: No obvious findings. IMPRESSION: No acute intracranial findings. No restricted diffusion to suggest infarct. Mineral deposition noted in the basal ganglia and thalami bilaterally. Usually calcium but also can be seen with copper and manganese deposition. DATA REPOSITORY:
--- NOTE | 2023-11-15 08:00 | DI.US_ITS ---
Exam(s) US ABDOMEN LIMITED EXAM: US ABDOMEN LIMITED CLINICAL HISTORY: Abnormal labs indicating possible cirrhosis TECHNIQUE: Ultrasound abdomen performed using standard protocol. COMPARISON: US POCUS EXAM from 11/14/2023 FINDINGS: There is no ascites evident. LIVER: Liver is hyperechoic indicating steatosis. There no discrete focal hepatic lesions identified . GALLBLADDER/BILIARY: There is sludge within the gallbladder lumen. No gallbladder wall edema and the re is no pericholecystic fluid. The common hepatic duct isnot dilated, measuring 5mm at the level of timo hepatis. PANCREAS: There is no evidence of pancreatic mass nor dilatation of the pancreatic duct. RIGHT KIDNEY:Less than optimally visualized but no evidence of obvious solid mass nor CIS nor hydrone phrosis. No cortical cysts evident. IMPRESSION: 1. There is sludge in the gallbladder lumen. No shadowing calculi. CBD diameter is 5 mm, upper nor mal. 2. Hepatic steatosis. No discrete focal hepatic lesions. 3. No other obvious right upper quadrant abdominal findings. There is no ascites. DATA REPOSITORY:
--- NOTE | 2023-11-15 08:00 | DI.US_ITS ---
APPROVED REPORT EXAM: Comprehensive 2D, Doppler, and color-flow Echocardiogram Patient Location: Out-Patient Propeller Mechanic: Nita Brandon RDCS (AE) Indications: Acute right CVA Echo Enhancing Agent Indication: Rule out Shunt Agent(s) / Amount(s) Used: Agitated Saline 30.0 cc Comments: Contrast study was performed with 2 IV injections of 10ccs of agitated normal saline, at re st and with cough. Patient was unable to cooperate with maneuvers. Other Information Study Quality: Fair. Technically limited study due to body habitus, inability to position patient exa m done bedside icu. Conclusion Normal left ventricular wall thickness and chamber size. EF is 55%. Wall motion is normal Normal right ventricular size and function Both atria are normal in size Aortic valve is sclerotic and trileaflet without stenosis or regurgitation Mild mitral annular calcification. Trace mitral regurgitation Normal tricuspid valve with trace regurgitation Estimated right ventricular systolic pressure is 30 mmHg Evaluation for shunt was inconclusive Wall motion Left Ventricle The left ventricle is normal size. The left ventricular systolic function is normal. The left ventric ular ejection fraction is within the normal range. There is normal left ventricular wall thickness. T here is normal LV segmental wall motion. There is no ventricular septal defect visualized. LVEF is 55 %. Right Ventricle The right ventricle is normal size. The right ventricular systolic function is normal. Atria The left atrium size is normal. The right atrium size is normal. The interatrial septum is intact wit h no evidence for an atrial septal defect. Saline bubble contrast intravenous injection is inconclusi ve due to patients inability to complete maneuvers. Aortic Valve The Aortic valve is sclerotic. Aortic valve is trileaflet. There is no aortic valvular stenosis. No a ortic regurgitation is present. Mitral Valve Mild mitral annular calcification. No evidence of mitral valve stenosis. Trace mitral regurgitation. Tricuspid Valve The tricuspid valve is normal in structure. There is no tricuspid valve stenosis. Trace tricuspid reg urgitation. The RVSP is 30.4_ mmHg. Pulmonic Valve The pulmonary valve is normal in structure. There is no pulmonic valvular stenosis. Trace to mild pul lemuel regurgitation. Great Vessels The aortic root is normal in size. The ascending aorta is normal in size. Aortic arch is normal in ca liber. IVC is normal in size and collapses >50% with inspiration. Pericardium There is no pericardial effusion. 2D Dimensions IVSD d PLAX 0.78 cm M: 0.6-1.2 Ao Root d 2.80 cm M: 3.1 - 3.7 LVPW d PLAX 0.82 cm M: 0.6 - 1.2 Ao Asc Diam d 3.33 cm M: 2.6 - 3.4 LVID d PLAX 4.57 cm M: 4.2 - 5.8 LVDs 3.24 cm M: 2.5 - 4.0 LV EF Teichholz 56.0 % FS 29.10 % LV EDV (Teich) 95.8 mL LV ESV (Teich) 42.2 mL M-Mode TAPSE 2.23 cm (M/F) >1.7 Auto EF LV EDV A4C 95.7 mL LV EDV A2C 138.3 mL LV EDV BP 115.6 mL LV ESV A4C 42.5 mL LV ESV A2C 60.4 mL LV ESV BP 52.6 mL LVEF(%) A4C 55.6 % LVEF(%) A2C 56.3 % LVEF(%) BP 54.5 % LV SV A4C 53.2 ml LV SV A2C 77.9 ml LV SV BP 63.0 ml LV CO A4C 3.4 L/min LV CO A2C 5.2 L/min LV CO BP 4.3 L/min HR A4C 63.49 BPM HR A2C 67.04 BPM LV EDV Index (BP) LA Volume LA Length A4C 4.4 cm LA Length A2C 3.9 cm LA Area A4C s 14.53 cm2 LA Area A2C s 13.45 cm2 LA Vol A4C A-L 40.86 mL LA Vol A2C A-L 39.24 mL LA Vol Biplane A-L 42.4 mL LA Vol/BSA A4C A-L LA Vol/BSA A2C A-L LA Vol/BSA BP A-L 23.4 mL/m2 LA Vol A4C MOD 37.3 mL LA Vol A2C MOD 37.2 mL LA Vol BP MOD 39.3 mL RA Volume RA Area A4C 11.9 cm2 RA ESV A4C (A-L) 30.9mL RA Vol/BSA A4C A-L RA Length A4C 3.9 cm RA ESV A4C (MOD) 29.4mL LV Diastology MV E' medial 0.077 (>0.07 m/s) MV E Vmax 1.22 (0.4-1.3 m/s) MV E/E' MED 15.88 (<14) MV A Vmax 0.80 (0.4-1.3 m/s) MV E' lateral 0.108 (>0.1 m/s) E/A Ratio 1.5 MV E/E' LAT 11.30 (<14) MV E' Average 0.093 m/s MV E/E'(average) 13.20 Aortic Valve AoV Vmax 1.33 m/s LVOT Vmax 0.95 m/s AoV Peak Grad 7.1 mmHg LVOT Peak Grad 3.6 mmHg AoV Area (Vmax) 1.99 cm2 LVOT VTI 0.239 m AoV VTI 0.339 m LVOT Mean Grad 2.2 mmHg AoV Mean Paul. 0.94 m/s LVOT SV 66.90 mL AoV Mean Grad 4.0 mmHg LVOT Diam s 1.85 cm AoV Area (VTI) 1.97 cm2 Velocity Ratio 0.71 Mitral Valve MV DT 221 (160-240 msec) MV Vmax TIPS 1.16 m/s MV Mean Grad 1.7 (<2mmHg) MV VTI 0.330 m Pulmonary Valve PV Vmax 0.84 (0.5-1.5 m/s) RVOT Vmax 0.46 m/s PV Peak Grad 2.8 mmHg RVOT Peak Gr. 0.9 mmHg PV Mean Paul 0.61 m/s RVOT VTI 0.129 m PV Mean Grad 1.6 mmHg RVOT Mean Gr. 0.5 mmHg Tricuspid Valve RA Pressure 3.00 mmHg TR Vmax 2.62 m/s TV S' 0.12 m/s TR Peak Grad 27.3 mmHg RVSP (TR) 30.4 mmHg
--- NOTE | 2023-11-15 08:39 | W.PM.PROGNOT ---
Date of Service Date of service: 11/15/23 Time of Service: 08:39 Assessment and Plan Assessment and plan (1) Cerebrovascular accident: Status: Acute Assessment and plan: clinically he had symptoms suggestive of CVA w/ left sided weakness, gait instability on Wednesday and Wednesday but seems to have recovered. CT scan of brain including CTA head and neck did not reveal any focal hemodynamically signficant stenosis but did show area of attentuation in the right precentral superior gyrus. I reviewed this w/ the tele-neurologist yesterday, Dr. Motley, he was not totally convinced that this area was in the parenchyma but was in the sulcus. Nevertheless, he agreed that patient either had CVA or TIA based on his presenting symptoms and recommended continued ASA and high dose statin, check MRI brain and echo. In light of patient's fevers, septic picture, if it turns out to be septic embolus then he made case that even ASA would not be indicated, if ordninary embolic CVA then anticoagulation would be indicated, but if thrombotic stroke then DAPT for 21 day then ASA for lifetime. We are awaiting his echo results and blood cultures, continue Ceftriaxone 2 gm daily along w/ Vancomycin. Patient is hemodynamically stable and neurologically stable and therefore can be transferred to the medical/surgical floor. Professional time spent interviewing and examining patient, discussion of goals of care with hospital team (care management, nursing and consulting professionals) was 45 minutes. Qualifiers: CVA mechanism: occlusion Laterality of affected vessel: right Precerebral and cerebral artery: middle cerebral artery Qualified Code(s): I63.511 - Cerebral infarction due to unspecified occlusion or stenosis of right middle cerebral artery (2) Elevated troponin level not due myocardial infarction: Status: Acute Assessment and plan: likely related to his multiple falls on Wednesday, his CK was elevated, despite his dramatic rise in his troponin levels he did not exhibit any ischemic EKG changes and denied any CP. bedside echo yesterday did not reveal any RWMA and overall LV and RV function looked normal. formal echo w/ bubble study was done this morning. (3) Cellulitis: Status: Acute Assessment and plan: right arm, area of redness and induration and scab over right upper outer humerus, continue ceftriaxone and vancomycin pending blood cultures, check echo for any vegetations. Qualifiers: Site of cellulitis: extremity Site of cellulitis of extremity: upper extremity Laterality: right Qualified Code(s): L03.113 - Cellulitis of right upper limb (4) Rhabdomyolysis: Status: Acute Assessment and plan: CK trending down now, was 1800 yesterday and now down to 1400, continue iv hydration w/ LR, monitor renal function and enzymes. I think this was the source of his troponin elevation. Qualifiers: Rhabdomyolysis type: traumatic Encounter type: initial encounter Qualified Code(s): T79.6XXA - Traumatic ischemia of muscle, initial encounter (5) Elevated LFTs: Status: Acute Assessment and plan: mild elevation of transaminases on admission; no labs done this morining; will repeat his CMP this morning along w/ his CBC, CRP and procalcitonin. (6) Thrombocytopenia: Status: Acute (7) Ulcer of left heel: Status: Acute Assessment and plan: will ask Dr. Spangler to consult on this. there does not appear to be any purulent drainage and the ulcer appears to be calloused Qualifiers: Non-pressure ulcer stage: limited to breakdown of skin Qualified Code(s): L97.421 - Non-pressure chronic ulcer of left heel and midfoot limited to breakdown of skin Subjective Subjective Interval history since last seen: Ahsan states that he feels better. He denies any CP or dyspnea or PAYNE. He is asking when he can go home. I told him that we have a few tests to check prior to his discharge. Echo and MRI are pending at this time. Exam Narrative Exam Narrative: Ahsan is alert and oriented to person/place (knows that he is in the hospital) HEENT: no appreciable facial asymmetry, speech is at his baseline, full EOMI Lungs: bibasilar rales; no rhonchi or wheezing Heart: RRR, no appreciable murmur or rub Neuro: no focal CN deficits, normal ROM and strenght in both UE and LE, no pronator drift, Babinski equivocal d/t withdrawal Feet: calloused ulcer left heel, no purulent discharge Objective Last Vital Signs Temp 36.5 C 11/15/23 05:20 Pulse 67 11/15/23 06:01 Resp 19 11/15/23 06:01 BP 120/78 11/15/23 06:01 Pulse Ox 95 11/15/23 06:01 Laboratory Results - last 24 hr 0411/14/23 11/14/23 11:45 12:20 13:55 Creatine Kinase Troponin I 6698 H* 26431 H* NT-Pro-B Natriuret Pep 963 H Add-On Test Request DONE 11/14/23 11/14/23 11/15/23 18:26 20:18 06:06 Creatine Kinase 1812 H 1458 H Troponin I 67903 H* 92150 H* NT-Pro-B Natriuret Pep Add-On Test Request DONE Time Spent with Patient Time Spent with Patient: 35-49 minutes Time was spent: preparing to see the patient(eg.review tests), ordering medications,tests, procedures, referring, communicating with other health senior care provider, indepentently interpreting results and care coordination
[2023-11-15] MEDS: VANCOMYCIN/WATER (PEG) 1 GM/200 ML BAG IV ×2 (08:47→21:07)
[2023-11-15] MEDS: cefTRIAXone 2 GM/50 ML BAG IVPB (08:50)
[2023-11-15] MEDS: Normal Saline Flush 10 ML SYR IVP ×2 (08:51→21:09)
[2023-11-15] MEDS: Aspirin 81 MG CHEW PO (08:51)
[2023-11-15] MEDS: Folic Acid 1 MG TAB PO (08:51)
[2023-11-15] MEDS: Cholecalciferol (Vitamin D3) 1,000 UNIT TAB 1000 UNITS PO (08:51)
[2023-11-15] MEDS: sulfaSALAzine 500 MG TAB PO ×2 (08:51→21:05)
[2023-11-15] MEDS: Multivitamin TAB 1 TAB PO (08:51)
--- NOTE | 2023-11-15 10:17 | PDOC.CMPRO ---
Date of service: 11/15/23 Care Management Progress Note Progress Note Text Progress Note Text: S/O: CM checked in with CHER Mosquera regarding IMM form, RN confirmed Pt would not be able to attend to this form and or sign and suggested to return when brother is present in the room this evening. A: Ahsan is a 63 year old admitted to [facility] 11/13/23 P: Ahsan will discharge home when medically ready. He will transport via private vehicle with family. He will follow up with his PCP and discharge plan of care. He will have no new services. CM following. [facility](Care Management) Screening Will the Patient Participate in the Screening?: Unable to obtain
[2023-11-15 10:29] LABS: Absolute Basophil Count 0.03 10^3/uL (0.0-0.2); Basophils % 0.5; MCV 99 fL (80-95); RDW 14.6 % (11.8-14.1)
[2023-11-15 10:31] LABS: Abs Immature Grans 0.01 10^3/uL (0.0-0.06); Absolute Eosinophil Count 0.12 10^3/uL (0.0-0.7); Absolute Lymphocyte Count 1.17 10^3/uL (1.2-3.4); Absolute Monocyte Count 0.74 10^3/uL (0.1-0.8); Absolute Neutrophil Count 4.01 10^3/uL (1.2-6.7); HCT 32.5 % (40.0-50.0); HGB 11.1 g/dL (13.5-17.5); Immature Grans % 0.2; Lymphocytes % 19.2; MCH 33.6 pg (27.0-33.0); MCHC 34.2 % (32.0-36.0); MPV 10.6 fL (8.0-11.0); Monocytes % 12.2; Neutrophils % 65.9; RDW-SD 53.9 fL; WBC 6.08 10^3/uL (4.4-10.8)
[2023-11-15 10:40] LABS: Diff Comment PLT Morph Reviewed; Platelet Count 94 10^3/uL (130-400); RBC Morphology Normal
[2023-11-15 10:59] LABS: ALT 43 U/L (16-63); AST 143 U/L (15-37); Albumin 2.8 g/dL (3.4-5.0); Alkaline Phosphatase 56 U/L (46-116); BUN 20 mg/dL (7-18); Bilirubin, Total 0.9 mg/dL (0.2-1.0); C-Reactive Protein 8.41 mg/dL (<or=0.5); CREATININE 0.7 mg/dL (0.70-1.30); Calcium 8.3 mg/dL (8.5-10.1); Chloride 107 mmol/L (98-107); Estimated GFR 104.83 (mL/min/1.73m2); Glucose 110 mg/dL (74-106); Potassium 3.6 mmol/L (3.5-5.1); Sodium 141 mmol/L (136-145); Total Protein 7.7 g/dL (6.4-8.2)
--- NOTE | 2023-11-15 11:02 | SP_ITS ---
Date of service: 11/15/23 Time of Service: 09:45 Subjective Clinical (Bedside) Swallow Evaluation Speech Language Pathology Referred by: Dr Carreon Referral Type: Clinical Swallow Evaluation Reason for Referral/HPI: Ahsan Saucedo is a 63 yo male with PMH significant for intellectual disability, Chrohn's disease, and hyperlipidemia who was admitted 11/11/23 with stroke symptoms, recent falls with injury to right face, and cellulitis There was question of right side weakness on admission, since resolved. CT of the head shows subacute infarct in the right precentral gyrus; MRI is pending. Ahsan does report and demonstrate difficulty swallowing and imprecise speech articulation. Ahsan lives with his brother, who is his legal guardian. QUILL PICKING MACHINE OPERATOR IMPRESSIONS & RECOMMENDATIONS: Ahsan was seen today for a non-instrumental swallow evaluation, sitting upright in a chair tolerating room air. He demonstrated imprecise articulation with evidence of some lingual discoordination, though difficult to assess what component of this is baseline and/or related to difficulty following instructions. Ahsan strongly declined PO trial offerings of diced fruit or fig spangler, stating it's too hard to do it in my mouth, stating that pudding was easy to swallow. He demonstrated immediate coughing post swallow with thin and mildly thick liquids. This was reduced with thin liquids from cup vs straw, though still continued. QUILL PICKING MACHINE OPERATOR contacted patient's legal guardian, Brandon, who denies baseline swallowing issues and confirmed that Ahsan normally eats regular texture foods without issue. Jami and Ahsan both report on Wednesday he was eating a ham sandwich and could not swallow it, which was new. Unclear if anxiety re: this event is further impacting willingness to trial solid foods. Brandon provided verbal consent for MBSS - tentatively scheduled tomorrow 11/16/23 at 1PM. Ahsan is considered heightened risk for aspiration, however these risks can be mitigated with strategies/diet modifications below. FURTHER QUILL PICKING MACHINE OPERATOR SERVICES: Patient to be followed while on unit. Upon Discharge, ongoing needs TBD Diet Recommendations: SOLIDS: L4 Puree Solids (Pt preference- favor mashed potatoes with gravy, puddings, yogurts, applesauce. If food is too liquidy, add thickener to pudding consistency) LIQUIDS: L0 Thin Liquids, No straws MEDICATIONS: Whole in applesauce encouraged, or 1 at a time with sip liquid SUPERVISION: Close supervision with meals STRATEGIES: - [place] upright, in a chair if possible, for meals - Encourage small single bites/sips - Oral Care before/after meals - No straws SUBJECTIVE: Patient received alert/awake, agreeable to evaluation Pain Reported? None Baseline Swallow Function: Patient denies swallowing difficulty prior to admission and eats a regular diet at baseline. PO Trials Assessed: IDDSI 0 Thin Liquids IDDSI 2 Mildly Thick Liquid IDDSI 4 Puree Solid (pudding, 4 oz) *Pt declined trials of soft/bite size foods Oral Mechanism Examination: Some missing upper dentition. Oral mucosa is moist. Cranial Nerve Assessment: Difficult to assess in light of intellectual disability. Lingual ROM/coordination appears impaired. Labial symmetry noted, lingual symmetry on protrusion noted. Oral Phase Findings: Limited solid trials - patient reporting difficulty with bolus manipulation though declined trials Pharyngeal Phase Findings: Delayed swallow initiation Question of reduced hyolaryngeal elevation/excursion Cough after swallow with thin and mildly thick liquids ? ASSESSMENT: Further QUILL PICKING MACHINE OPERATOR Services indicated. Patient to be followed while on unit. Recommendation at Discharge: QUILL PICKING MACHINE OPERATOR Services via Home Health vs Outpatient Services, to be determined Suggested Referrals: N/A Recommended Procedures: MBSS/VFSS - scheduled for 11/16/23 at 1PM Education Provided to: Nursing, Physician, Patient, Patient's family (humphrey agosto/guardian, Brandon) Topics Addressed: QUILL PICKING MACHINE OPERATOR findings, POC, recommendations, aspiration precautions PLAN: Frequency: 3-4x/week for 1-2 weeks Goals: Senior Care Goals: Patient will remain free from aspiration-related illness, malnutrition, and dehydration. Short Term Goals: Patient will tolerate L4 Puree Diet and Thin liquids without overt s/s aspiration across 2/2 visits. Patient will tolerate PO trials for consideration of diet upgrade without overt s/s aspiration across 2/2 visits. Patient/family will verbalize comprehension of education re: dysphagia. QUILL PICKING MACHINE OPERATOR CPT Code: 26660 Clinical Swallowing Evaluation TOTAL TIME: 25 Minutes
--- NOTE | 2023-11-15 12:51 | DI.VRAD_ITS ---
PROCEDURE INFORMATION: Exam: MR Head Without Contrast Exam date and time: 11/15/2023 11:26 AM Age: 63 years old Clinical indication: Condition or disease; Other: Acute right CVA seen on CT TECHNIQUE: Imaging protocol: Magnetic resonance imaging of the head without contrast. 546image(s) are provided. Other technique: Multiplanar, multisequence images are provided. COMPARISON: CT BRAIN NECK CTA 11/13/2023 10:10 PM. No previous MRI is currently available. FINDINGS: Brain: There are moderate cerebral atrophic changes overall.There are chronic periventricular white matter changes present.There are central lacunar changes demonstrated.No mass effect or layering hemorrhage is appreciated. Raya, white matter differentiation appears maintained.The diffusion-weighted images are negative for acute ischemia. This includes the previously described clinical area of question. There are multiple calcifications including dense basal ganglia as well as some cerebellar calcifications demonstrated overall. Symmetric appearance of the internal auditory canal structures is demonstrated. Cerebral ventricles: No interval hydrocephalus is appreciated. Bones/joints: Osseous alignment is maintained. No interval displaced fracture or dislocation is appreciated. There is hyperostosis frontalis demonstrated. Paranasal sinuses: There is some chronic appearing paranasal sinus mucosal thickening. Mastoid air cells: The mastoid air cells appear well-aerated overall. Orbital cavities: Symmetric appearance of the orbital soft tissues is demonstrated. Symmetric appearance of the orbital soft tissues is demonstrated. Vasculature: The central vascular flow voids are demonstrated. Soft tissues: No subcutaneous fluid collections are currently appreciated. Other findings: There is some motion limiting artifact present. No other significant interval changes are appreciated. IMPRESSION: No interval mass effect, evidence of acute ischemia or hydocephalus is demostrated. No significant interval intracranial changes are appreciated. Dictated and Authenticated by: Antoine Cotto MD. Ordering:FLORENCIA Whitehead MD
[2023-11-15] MEDS: Heparin 5,000 UNITS/ML VIAL 5000 UNITS SC ×2 (13:38→21:06)
[2023-11-15] MEDS: Lactated Ringers 1,000 ML 80 ML IV (14:19)
--- NOTE | 2023-11-15 14:19 | POCOE_ITS ---
Date of service: 11/15/23 Time of Service: 12:00 Assessment and Plan Assessment and plan (1) Chronic ulcer of left foot: Status: Acute (2) Ulcer of left foot, limited to breakdown of skin: Status: Acute (3) Ulcer of left heel: Status: Acute Qualifiers: Non-pressure ulcer stage: limited to breakdown of skin Qualified Code(s): L97.421 - Non-pressure chronic ulcer of left heel and midfoot limited to breakdown of skin (4) Developmental disorder: Status: Chronic (5) Elevated troponin level not due myocardial infarction: Status: Acute Assessment and plan: Patient is seen and evaluated bedside today. There are preulcerative lesions noted to the plantar aspect of the left foot. No surgical intervention is indicated or planned at this time. I recommend application of antibiotic ointment and a Band-Aid to the heel by nursing to be changed every other day. He will benefit from ABIs which can be performed outpatient. No further intervention is indicated at this time. I will sign out. 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 In the ED did not have localizing weakness but did have some speech impairment which may be chronic. Podiatry is consulted for left foot ulceration. Denies any pain. Review of Systems Cardiovascular Comments: Absent pulses bilateral lower extremity. Skin is taut. Musculoskeletal Comments: No tenderness to palpation bilateral lower extremity. Integumentary/Breasts Comments: Preulcerative hyperkeratosis left foot PFSH All Active Problems (Updated 11/15/23 @ 14:29 by Anuja Spangler DPM) Ulcer of left foot, limited to breakdown of skin (Acute) Chronic ulcer of left foot (Acute) Rhabdomyolysis (Acute) Ulcer of left heel (Acute) Elevated LFTs (Acute) Thrombocytopenia (Acute) Elevated troponin level not due myocardial infarction (Acute) Cellulitis (Acute) Cerebrovascular accident (Acute) Cerumen impaction (Acute) Arthritis of knee, left (Acute) DEPO MEDROL 11/04/23 Neck muscle strain (Acute) Testicular hypofunction (Acute 10/06/11) Regional enteritis of unspecified site (Acute 01/15/83) Colonoscopy Dr Marcy Suero 08/12/1983; FAMILY DECLINES REPEAT Hyperlipidemia (Chronic 09/17/07) LDL >200; RISK 6% CALCULATED 09/2007; RX LIFESTYLE, FAMILY DECLINES MEDS; recalculated 5.4% no med indicated 05/2014; LDL >190: rec statin based on LDL; Risk calculated 06/2016 7.8% would not merit rx. 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 Crohn's disease of both small and large intestine with other complication (Chronic) perianal inflammation; compound topical Anemia (Chronic 09/27/08) Hb 12.4 in 2008; mild normocytic; persists, likley due to sulfasalazine; normal iron, B12 Surgical History H/O colonoscopy (08/12/83) Family History Mother Ulcerative colitis 08/2010 Maternal Aunt Diabetes Paternal Uncle Colon cancer Maternal Grandmother Liver cancer Social History Smoking/Tobacco Use Status: Never Second Hand Exposure: No Smoking risk assessment performed?: Yes Alcohol Intake: never Substance use type: does not use Adopted: No Caregiver/Support person: Yes (mother) Foster care: No Household members: other Details: lives with brother Housing: house Number of Children: 0 number of grandchildren: 0 Education Level: high school Do you need help understanding health information?: Often 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 Pets and animals: No How often do you talk on the phone with friends or family?: twice per week How often do you get together with friends or relatives?: three or more times per week Do you belong to any clubs or organized social groups?: no Panel score (0-1 are the most socially isolated patients): 1 Jyotsna/Mormonism: Yazidism Special jyotsna needs: No Seatbelt use: always Drive intox or ride w/intox auto crane driver: No Water heater temp set <120 deg: Yes Working smoke detector in home: Yes Fire extinguisher in home: Yes Carbon monox detector in home: Yes Victim of physical abuse: No Victim of emotional abuse: No Victim of sexual abuse: No Additional Social history: LIVE W/ PARENTS IN [place] Exam Extrem Other: Bilateral lower extremity physical exam: Derm: Hyperkeratosis with subdermal bleeding noted x 3 to the left foot without any periwound erythema or edema. No other open lesions or ulcerations noted. Vascular: DP PT pulses are nonpalpable bilateral lower extremity. Skin is dry and intact. Hair growth absent bilaterally. MSK: No tenderness to palpation bilaterally. Caroid foot structure noted bilaterally. Neuro: Deferred today Results Last Vital Signs Temp 98.1 F 11/15/23 07:15 Pulse 67 11/15/23 09:00 Resp 17 11/15/23 14:09 BP 123/59 L 11/15/23 09:00 Pulse Ox 90 L 11/15/23 09:01 Labs 11/15/23 10:10 11/15/23 10:10 Labs: Laboratory Results - last 24 hr 11/14/23 11/14/23 11/14/23 13:55 18:26 20:18 WBC RBC Hgb Hct MCV MCH MCHC RDW Plt Count MPV Immature Gran % Neutrophils % Lymphocytes % Monocytes % Eosinophils % Basophils % Nucleated RBC % Absolute Neutrophils Absolute Lymphocytes Absolute Monocytes Absolute Eosinophils Absolute Basophils RBC Morphology Sodium Potassium Chloride Carbon Dioxide Anion Gap BUN Creatinine Est GFR (CKD-EPI 2020) Glucose Calcium Total Bilirubin AST ALT Alkaline Phosphatase Creatine Kinase 1812 H Troponin I 50215 H* 41624 H* C-Reactive Protein Total Protein Albumin Procalcitonin Add-On Test Request DONE 11/15/23 11/15/23 06:06 10:10 WBC 6.08 RBC 3.30 L Hgb 11.1 L Hct 32.5 L MCV 99 H MCH 33.6 H MCHC 34.2 RDW 14.6 H Plt Count 94 L MPV 10.6 Immature Gran % 0.2 Neutrophils % 65.9 Lymphocytes % 19.2 Monocytes % 12.2 Eosinophils % 2.0 Basophils % 0.5 Nucleated RBC % 0.0 Absolute Neutrophils 4.01 Absolute Lymphocytes 1.17 L Absolute Monocytes 0.74 Absolute Eosinophils 0.12 Absolute Basophils 0.03 RBC Morphology Normal Sodium 141 Potassium 3.6 Chloride 107 Carbon Dioxide 26.0 Anion Gap 8.0 BUN 20 H Creatinine 0.7 Est GFR (CKD-EPI 2020) 104.83 Glucose 110 H Calcium 8.3 L Total Bilirubin 0.9 AST 143 H ALT 43 Alkaline Phosphatase 56 Creatine Kinase 1458 H Troponin I 88484 H* C-Reactive Protein 8.41 H Total Protein 7.7 Albumin 2.8 L Procalcitonin 4.0 Add-On Test Request
--- NOTE | 2023-11-15 15:15 | W.CARDCONSUL ---
Date of service: 11/15/23 Time of Service: 15:15 Assessment and Plan Assessment and plan (1) Elevated troponin level not due myocardial infarction: Status: Acute Assessment and plan: Patient's markedly elevated in the setting of a normal EKG and normal echocardiogram is most consistent with a noncardiac etiology. This was discussed with Dr. Carreon. It is most likely due to musculoskeletal injury. History of Present Illness Narrative: This is a 63-year-old man who was admitted to the hospital over the weekend with concerns for stroke. as part of evaluation he had cardiac enzymes performed which showed markedly elevated troponin. EKG however was normal. Echocardiogram also showed normal LV function and wall motion. CPK was elevated as well. Consults Requesting physician: Robles Carreon Review of Systems Narrative: Patient was not interviewed PFSH All Active Problems (Updated 11/15/23 @ 14:29 by Anuja Spangler DPM) Ulcer of left foot, limited to breakdown of skin (Acute) Chronic ulcer of left foot (Acute) Rhabdomyolysis (Acute) Ulcer of left heel (Acute) Elevated LFTs (Acute) Thrombocytopenia (Acute) Elevated troponin level not due myocardial infarction (Acute) Cellulitis (Acute) Cerebrovascular accident (Acute) Cerumen impaction (Acute) Arthritis of knee, left (Acute) DEPO MEDROL 11/04/23 Neck muscle strain (Acute) Testicular hypofunction (Acute 10/06/11) Regional enteritis of unspecified site (Acute 01/15/83) Colonoscopy Dr Marcy Suero 08/12/1983; FAMILY DECLINES REPEAT Hyperlipidemia (Chronic 09/17/07) LDL >200; RISK 6% CALCULATED 09/2007; RX LIFESTYLE, FAMILY DECLINES MEDS; recalculated 5.4% no med indicated 05/2014; LDL >190: rec statin based on LDL; Risk calculated 06/2016 7.8% would not merit rx. 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 Crohn's disease of both small and large intestine with other complication (Chronic) perianal inflammation; compound topical Anemia (Chronic 09/27/08) Hb 12.4 in 2008; mild normocytic; persists, likley due to sulfasalazine; normal iron, B12 Surgical History H/O colonoscopy (08/12/83) Family History Mother Ulcerative colitis 08/2010 Maternal Aunt Diabetes Paternal Uncle Colon cancer Maternal Grandmother Liver cancer Social History Smoking/Tobacco Use Status: Never Second Hand Exposure: No Smoking risk assessment performed?: Yes Alcohol Intake: never Substance use type: does not use Adopted: No Caregiver/Support person: Yes (mother) Foster care: No Household members: other Details: lives with brother Housing: house Number of Children: 0 number of grandchildren: 0 Education Level: high school Do you need help understanding health information?: Often 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 Pets and animals: No How often do you talk on the phone with friends or family?: twice per week How often do you get together with friends or relatives?: three or more times per week Do you belong to any clubs or organized social groups?: no Panel score (0-1 are the most socially isolated patients): 1 Jyotsna/Judaism: Hindu Special jyotsna needs: No Seatbelt use: always Drive intox or ride w/intox transit driver: No Water heater temp set <120 deg: Yes Working smoke detector in home: Yes Fire extinguisher in home: Yes Carbon monox detector in home: Yes Victim of physical abuse: No Victim of emotional abuse: No Victim of sexual abuse: No Additional Social history: LIVE W/ PARENTS IN [place] Exam Narrative Exam Narrative: Patient was examined Results Last Vital Signs Temp 36.7 C 11/15/23 07:15 Pulse 67 11/15/23 09:00 Resp 17 11/15/23 14:09 BP 123/59 L 11/15/23 09:00 Pulse Ox 90 L 11/15/23 09:01 Labs 11/15/23 10:10 11/15/23 10:10 Labs: Laboratory Results - last 24 hr 11/14/23 11/14/23 11/15/23 18:26 20:18 06:06 WBC RBC Hgb Hct MCV MCH MCHC RDW Plt Count MPV Immature Gran % Neutrophils % Lymphocytes % Monocytes % Eosinophils % Basophils % Nucleated RBC % Absolute Neutrophils Absolute Lymphocytes Absolute Monocytes Absolute Eosinophils Absolute Basophils RBC Morphology Sodium Potassium Chloride Carbon Dioxide Anion Gap BUN Creatinine Est GFR (CKD-EPI 2020) Glucose Calcium Total Bilirubin AST ALT Alkaline Phosphatase Creatine Kinase 1812 H 1458 H Troponin I 14146 H* 46773 H* C-Reactive Protein Total Protein Albumin Procalcitonin Add-On Test Request DONE 11/15/23 10:10 WBC 6.08 RBC 3.30 L Hgb 11.1 L Hct 32.5 L MCV 99 H MCH 33.6 H MCHC 34.2 RDW 14.6 H Plt Count 94 L MPV 10.6 Immature Gran % 0.2 Neutrophils % 65.9 Lymphocytes % 19.2 Monocytes % 12.2 Eosinophils % 2.0 Basophils % 0.5 Nucleated RBC % 0.0 Absolute Neutrophils 4.01 Absolute Lymphocytes 1.17 L Absolute Monocytes 0.74 Absolute Eosinophils 0.12 Absolute Basophils 0.03 RBC Morphology Normal Sodium 141 Potassium 3.6 Chloride 107 Carbon Dioxide 26.0 Anion Gap 8.0 BUN 20 H Creatinine 0.7 Est GFR (CKD-EPI 2020) 104.83 Glucose 110 H Calcium 8.3 L Total Bilirubin 0.9 AST 143 H ALT 43 Alkaline Phosphatase 56 Creatine Kinase Troponin I C-Reactive Protein 8.41 H Total Protein 7.7 Albumin 2.8 L Procalcitonin 4.0 Add-On Test Request
[2023-11-15 17:18] LABS: Legionella Ag Detection Urine Negative (Negative)
[2023-11-15] MEDS: Atorvastatin 40 MG TAB 80 MG PO (21:05)
[2023-11-16 03:11] VITALS: BP 125/61; PULSE 74; RESP 18; TEMP 37.5; O2SAT 94
[2023-11-16] MEDS: Heparin 5,000 UNITS/ML VIAL 5000 UNITS SC ×3 (04:47→20:47)
[2023-11-16 06:42] LABS: Abs Immature Grans 0.01 10^3/uL (0.0-0.06); Absolute Basophil Count 0.03 10^3/uL (0.0-0.2); Absolute Eosinophil Count 0.39 10^3/uL (0.0-0.7); Absolute Lymphocyte Count 1.61 10^3/uL (1.2-3.4); Absolute Monocyte Count 0.84 10^3/uL (0.1-0.8); Absolute Neutrophil Count 3.15 10^3/uL (1.2-6.7); Basophils % 0.5; Eosinophils % 6.5; HCT 27.7 % (40.0-50.0); HGB 9.6 g/dL (13.5-17.5); Immature Grans % 0.2; Lymphocytes % 26.7; MCH 33.2 pg (27.0-33.0); MCHC 34.7 % (32.0-36.0); MCV 96 fL (80-95); MPV 11.2 fL (8.0-11.0); Monocytes % 13.9; Neutrophils % 52.2; RBC 2.89 10^6/uL (4.36-5.78); RDW 14.3 % (11.8-14.1); RDW-SD 50.3 fL; WBC 6.03 10^3/uL (4.4-10.8)
--- NOTE | 2023-11-16 07:00 | DI.RAD_ITS ---
Exam(s) RF MODIFIED SPEECH BA SWALLOW TECHNIQUE: Modified barium swallow was performed in conjunction with speech pathology. CONTRAST MATERIAL: Multiple consistencies of oral barium contrast were administered. COMPARISON: No exams were available for comparison FINDINGS: Note that this is not a dedicated esophagram, distal esophagus not evaluated. There is no evidence of aspiration or penetration with any consistency. Speech pathology report to follow. IMPRESSION: No evidence of aspiration or penetration. RADIATION DOSE DELIVERED: alicia Rocha=5.5 mGy
[2023-11-16 07:14] LABS: ALT 40 U/L (16-63); AST 110 U/L (15-37); Albumin 2.5 g/dL (3.4-5.0); Alkaline Phosphatase 56 U/L (46-116); Anion Gap 7.9 mmol/L (3-11); BUN 17 mg/dL (7-18); CO2 25.1 mmol/L (21.0-32.0); CREATININE 0.6 mg/dL (0.70-1.30); Calcium 8.2 mg/dL (8.5-10.1); Chloride 107 mmol/L (98-107); Creatine Kinase 838 U/L (39-308); Diff Comment Diff Reviewed; Estimated GFR 109.83 (mL/min/1.73m2); Glucose 89 mg/dL (74-106); Platelet Count 99 10^3/uL (130-400); Potassium 3.9 mmol/L (3.5-5.1); RBC Morphology Normal; Sodium 140 mmol/L (136-145); Vancomycin, Random 14.7 ug/mL
[2023-11-16 07:15] LABS: Troponin I 6922 ng/L (< or =60)
--- NOTE | 2023-11-16 08:10 | CMPROGNOTE_ITS ---
Date of service: 11/16/23 Time of Service: 08:10 Care Management Progress Note Progress Note Text Progress Note Text: S/O: Ahsan remains inpatient at [facility], awaiting modified barrium swallow this afternoon, close to discharge ready per MD. CM continues to follow. A: Ahsan is a 63 year old admitted to [facility] 11/13/23 P: Ahsan will discharge home when medically ready. He will transport via private vehicle with family. He will follow up with his PCP and discharge plan of care. He will have no new services. CM following. SDOH(Care Management) Screening Will the Patient Participate in the Screening?: Unable to obtain
[2023-11-16 08:15] VITALS: BP 146/72; PULSE 83; RESP 17; TEMP 37.4; O2SAT 93
[2023-11-16] MEDS: cefTRIAXone 2 GM/50 ML BAG IVPB (08:31)
[2023-11-16] MEDS: Folic Acid 1 MG TAB PO (08:32)
[2023-11-16] MEDS: sulfaSALAzine 500 MG TAB PO ×2 (08:32→20:47)
[2023-11-16] MEDS: Aspirin 81 MG CHEW PO (08:32)
[2023-11-16] MEDS: Multivitamin TAB 1 TAB PO (08:32)
[2023-11-16] MEDS: Cholecalciferol (Vitamin D3) 1,000 UNIT TAB 1000 UNITS PO (08:33)
[2023-11-16] MEDS: Normal Saline Flush 10 ML SYR IVP ×2 (08:34→20:46)
--- NOTE | 2023-11-16 08:42 | W.NUTRFU ---
Date of service: 11/16/23 Time of Service: 08:42 Nutrition Note NOTE: Mr Saucedo is s/p CVA on a pureed thin diet. His weight is stable at 73.3kg and his BMI is 26.1 which is reasonable for his age. It is consistent with mild overweight. His PO has been fairly poor. We will trial some Boost Breeze on his trays for some increased calories and protein. Given the thin consistency ordered for him, the milk based protein shakes are too thick. Will continue to monitor his PO and his weight and his tolerance to Boost Breeze. Time Spent in Nutritional Counseling and Treatment: 0
[2023-11-16] MEDS: VANCOMYCIN/WATER (PEG) 1 GM/200 ML BAG IV ×2 (09:27→20:46)
[2023-11-16 11:15] VITALS: BP 136/66; PULSE 63; RESP 18; TEMP 36.3; O2SAT 97
--- NOTE | 2023-11-16 11:29 | OTIE_ITS ---
Occupational Therapy Notes Inpatient Occupational Therapy Evaluation Date: 11/16/23 Referring Doctor:Robles Carreon MD OT Orders: Fall, Standard, Full Precautions: Non Urgent PATIENT PROFILE/ADMITTING DIAGNOSIS: Pt is a 63 year old male who was admitted through the ED for clinical impression of CVA and fall. He is currently on Med Surg with the dx of ulcer of (L) foot, rhabdomyolysis, elevated LFTs, thrombocytopenia, elevated troponin, CVA. Past Medical History: All Active Problems (Updated 11/14/23 @ 11:33 by Ventura Weeks) Elevated LFTs (Acute) Thrombocytopenia (Acute) Elevated troponin level not due myocardial infarction (Acute) Cellulitis (Acute) Cerebrovascular accident (Acute) Cerumen impaction (Acute) Arthritis of knee, left (Acute) DEPO MEDROL 11/04/23Neck muscle strain (Acute) Testicular hypofunction (Acute 10/06/11) Regional enteritis of unspecified site (Acute 01/15/83) Colonoscopy Dr Marcy Suero 08/12/1983; FAMILY DECLINES REPEAT Hyperlipidemia (Chronic 09/17/07) LDL >200; RISK 6% CALCULATED 09/2007; RX LIFESTYLE, FAMILY DECLINES MEDS; recalculated 5.4% no med indicated 05/2014; LDL >190: rec statin based on LDL; Risk calculated 06/2016 7.8% would not merit rx. 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) [facility], [facility] Crohn's disease of both small and large intestine with other complication (Chronic) perianal inflammation; compound topical Anemia (Chronic 09/27/08) Hb 12.4 in 2008; mild normocytic; persists, likley due to sulfasalazine; normal iron, B12 Surgical History H/O colonoscopy (08/12/83) Social History/Home Situation: Pt states that he lives at home with his dad and needs help with his ADLs. Per CM initial assessment pts brother is his caregiver. Equipment owned/DME: unable to assess SUBJECTIVE: Pt was sitting in chair when OT arrived. He was agreeable to OT consult and OBJECTIVE: General Observation: Pleasant, bruising on UE likely from IV and small rash which looks like placement of heart monitor pad on the (R) UE, bruising under (R) eye Mental Status: Alert to name and place Pain: no c/o pain ROM: RUE AROM WFL L UE AROM WFL STRENGTH: RUE 4-/5 throughout globally LUE 4/5 throughout globally FUNCTIONAL MOBILITY/ADLS: BATHING seated in chair with max (A) Set up/clean up Bathing UE (I) face, (B) UE and abdomen with min vc provided throughout and vc for task initiation, max (A) back Bathing LE Performed with nursing prior to OT arrival. DRESSING seated in chair Dressing UE mod (A) with [facility] gown Dressing LE NT GROOMING seated in chair (I) with brushing hair with ideal technique EATING Seated in chair (I) BALANCE: Static sitting Good Dynamic Sitting Good INFORMED CONSENT/EDUCATION: Pt instructed in purpose of OT Consult and plan of care. ASSESSMENT: Patient is a 63-year-old male referred to occupational therapy services with diagnosis of dx of ulcer of (L) foot, rhabdomyolysis, elevated LFTs, thrombocytopenia, elevated troponin, CVA.. Patient presents with clinical signs and symptoms consistent with dx, as demonstrated by the following impairment level findings/functional limitations: Impairments in ADL/IADL And leisure activities, decreased functional activity tolerance, requires vc for task initiation but otherwise very functionally (I). Patient is assessed as a Moderate [id number] complexity based on the following: History: see above Examination: see functional limitations as noted above Presentation:evolving Decision Making: moderate complexity GOALS Goals x1 week 1. Transfers (I) 2. Dressing seated (I) UE/LE 3. Bathing seated I) 4. Toileting on toilet (I) 5. Eating (I) PLAN OF CARE/TREATMENT PLAN: 1x/day, 5 days/ week x 1week Initiate Occupational Therapy Services for bathing, dressing, grooming, toileting, eating, transfer training. DISCHARGE RECOMMENDATIONS OT recommends pt return home with services when medically cleared per MD. TREATMENT TIME/MINUTES/CODES 91849, [id number], 25 minutes [facility] [place], [place]
--- NOTE | 2023-11-16 13:07 | PT.INIE ---
PT Notes Visit Reasons: Right CVA,cc heriberto jones Physical Therapy Inpatient Initial Evaluation Date: 11/16/2023 Referring Doctor: Robles Carreon MD PT Orders: PT CONSULT: Fall safety assessment Precautions: Fall. Standard. Activity as tolerated. Patient Profile/Admitting Diagnosis: Patient is a 63-year-old male patient with developmental delay and Chron's disease who presented to the ED on 11/12/2022 due to increased falling with injury to R face from recent 2 falls on 11/13/2023. Patient was admitted for work up to rule out CVA and for management of elveated tropnin, celulitis of R shoulder, hyperlipidemia, anemia, elevated LFTs, and thrombocytopenia. PMHX: All Active Problems (Updated 11/14/23 @ 11:33 by Ventura Weeks) Elevated LFTs (Acute) Thrombocytopenia (Acute) Elevated troponin level not due myocardial infarction (Acute) Cellulitis (Acute) Cerebrovascular accident (Acute) Cerumen impaction (Acute) Arthritis of knee, left (Acute) DEPO MEDROL 11/04/23 Neck muscle strain (Acute) Testicular hypofunction (Acute 10/06/11) Regional enteritis of unspecified site (Acute 01/15/83) Colonoscopy Dr Marcy Suero 08/12/1983; FAMILY DECLINES REPEAT Hyperlipidemia (Chronic 09/17/07) LDL >200; RISK 6% CALCULATED 09/2007; RX LIFESTYLE, FAMILY DECLINES MEDS; recalculated 5.4% no med indicated 05/2014; LDL >190: rec statin based on LDL; Risk calculated 06/2016 7.8% would not merit rx. 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 Ahsan is independent with all mobility ADL performance using no assistive device. Likes to play golf and go bowling. Won an award at the [employer] golfing. Has 2 steps to enter. There is a flight of steps to the patient's bedroom with a rail and a wall on the other side patient can hold onto. Equipment Owned/DME: None Subjective: Denied headache, chest pain, and lightheadedness throughout session. Proud about how well he plays golf. Objective: General Observation: Seated on bedside recliner. Brother Breezy present throughout session. Injury to R side of face from most recent falls noted. Speech mildly unclear, brother needed to clarify what patient said throughout conversation. Mental Status: Alert and oriented as to person, place, time, and purpose. [place] to follow single-step commands. Pain: None reported Vital Signs: After walking from room 209 to the gym BP167/95 mmHg, HR 69 bpm, oxygen saturation 97% on RA ROM: Right Upper Extremity: Shoulder Flexion WFL. Shoulder abduction WFL. Elbow flexion WFL. Wrist flexion WFL. Functional opening and closing of hand WFL. Left Upper Extremity: Shoulder Flexion WFL. Shoulder abduction WFL. Elbow flexion WFL. Wrist flexion WFL. Functional opening and closing of hand WFL. Right Lower Extremity: Hip flexion WFL. Hip abduction WFL. Knee flexion WFL. Ankle dorsiflexion WFL. Ankle plantarflexion WFL. Left Lower Extremity: Hip flexion WFL. Hip abduction WFL. Knee flexion WFL. Ankle dorsiflexion WFL. Ankle plantarflexion WFL. Strength: Right Upper Extremity: Shoulder flexors 4-/5. Shoulder abductors 4-/5. Elbow flexors 4-/5. Elbow extensors 4-/5. Sat Act Instructor weak but functional. Left Upper Extremity: Shoulder flexors 4/5. Shoulder abductors 4/5. Elbow flexors 4/5. Elbow extensors 4/5. Sat Act Instructor weak but functional. Right Lower Extremity: Hip flexors 4-/5. Hip abductors 4-/5. Knee flexors 4-/5. Knee extensors 3+/5. Ankle dorsiflexors 3/5. Ankle plantarflexors 4-/5. Left Lower Extremity: Hip flexors 4/5. Hip abductors 4/5. Knee flexors 4/5. Knee extensors 4-/5. Ankle dorsiflexors 3/5. Ankle plantarflexors 4-/5. Bed Mobility/Transfers: Minimal cueing provided for use of B hands as needed for support, movement sequence, AD management, and posture to reduce fall risk and minimize pain report Sit to stand contact guard assist Stand to sit stand by assist with FWW Bed to reclining chair stand by assist with FWW Reclining chair to bed stand by assist with FWW Gait: Facilitate safe and correct performance of level surface ambulation covering a distance of 150 feet with front-wheeled walker with stand by assist + 150 feet without assistive device with contact guard assist of PT and ACTUARIAL ASSOCIATE Emigdio for safety. With walker, patient demonstrated increased trunk flexion and slowed ally. Without assistive device, ally was increased and patient was more upright. Step-to gait on the R. No LOB. No SOB. Patient did report fatigue after waling and stair negotiation. Incrased toeing out on R. Stairs: Negotiated 6 x 4-inch steps and 4 x 6-inch steps while holding onto B rails with [id number] pattern requring only stand by assist and minimal verbal cueing for safety. Balance: Static Sitting: Normal Dynamic Sitting: Normal Static Standing: Good Dynamic Standing: Good Special Tests: Mobility Limitations Standardized Measure [facility] AM-PAC 6 clicks Basic Mobility Inpatient Short Form: Raw Score: 23 CMS Score: 11% deficit Tone: Normal in B UE/LE Rapid Alternating Movement: Impaired in B UE/LE 30-second chair score: 4 with use of B UE during ascent 4-stage Blance Test: feet together <10 seconds, semi-tandem <10 seonds, full tandem deferred, one-legged stance deferred Informed Consent/Education: Patient was instructed in purpose of PT consult and plan of care. Agreeable to proceed with established PT POC to achieve personal goals. Assessment: Weaker R UE/LE compared to L side. With pre-existing L knee arthritis for which patient recently received steroid injection. R foot unable to step past L during walking activity. Patient presents with clinical signs and symptoms consistent with current/admitting diagnoses that have resulted to mobility limitations, gait instability, generalized weakness, and overall ADL decline as demonstrated by the following impairment level findings: 1. Decreased strength to B UE/LE with R>>L 2. Impaired standing balance 3. Impaired activity tolerance Impairments are contributing to the following functional limitations: 1. Difficulty with ambulation without assistive device and physical assistance 2. Increased completion time for mobility ADL performance 3. Increased risk for falls 4. Difficulty with managing steps alone safely Patient is assessed as a 83194 moderate complexity based on the following: History: 63-year-old male with past medical history as indicated above Examination: Demonstrable impairment in strength, balance, and mobility level with underlying impairments and functional limitations as exhibited above as well as deficit score of 11% utilizing the [facility] Mobility Inpatient Short Form Presentation: Evolving Decision Makin moderate complexity Goals: Goals X1 week 1. Supine-Sit independent 2. Sit-Supine independent 3. Sit-Stand independent 4. Stand-Sit independent with no AD 5. Bed-Chair independent with no AD 6. Chair-Bed independent with no AD 7. Independent gait on level surface with use of no AD for at least 300 feet without report of pain nor dyspnea 8. Independent stair negotiation while holding onto 1 rail for at least 12 steps without report of pain nor dyspnea 9. Supervision with home exercise program 10. Good static and dynamic standing balance/tolerance Plan of Care/Treatment Plan: 1-2x/day, 7 days/week x 1 week. Plan of care has been reviewed with the ACTUARIAL ASSOCIATE providing the service under Physical Therapy direction. Initiate Physical Therapy intervention for pain management as needed, strengthening, bed mobility, transfers, gait, stairs, balance training, and use of assistive device. DISCHARGE RECOMMENDATIONS: [] Home with no services [] [X patient will benefit from home health PT services in order to progress mobility level using least restrictive assistive ambulatory device, assess home safety, identify additional equipment needs, and establish a functional maintenance program that will increase ability of patient to remain at home.] Home with services. [] Home with outpatient PT [] [] SNF for continued rehabilitation [] [] [facility] [] [] SNF versus LTC based on ability to participate and progress [] TREATMENT CODE/TIME: 88316 20 minutes for 1 unit, 975 0 x 23 minutes for 2 units (11:38-12:21) Thank you for the opportunity to participate in the care of this patient. Jenifer Gracia PT, DPT, CLT [facility] [place], [place]
--- NOTE | 2023-11-16 14:03 | ST.MBS ---
Date of Service Date of service: 11/16/23 Time of Service: 13:30 Modified Barium Swallow Study Findings: Video fluoroscopic Swallowing Evaluation (VFSE) / Modified Barium Swallow Study (MBSS) Speech Language Pathology Report Patient referred for VFSE/MBSS from Dr. Carreon given suspected CVA on admit and question of dysarthria and swallowing changes. HPI & Patient report of function: 63 y/o M with intellectual disability, Chrohns disease, HLD, admitted after multiple recent falls and with question of CVA on CT, since ruled out with MRI. Also found with elevated troponins and possible R sided weakness. Patient reports no further swallowing difficulty this date. His brother provided further subjective report as well this date and feels that the only concern he had for recent swallow changes was related to recent nausea vs regurgitation events. He does endorse some concern with impulsive/fast eating behaviors. He does not feel that Ahsan's speech today is changed from baseline, although may have been slightly exacerbated yesterday in setting of anxiety. IMPRESSIONS: Swallow safety is preserved; swallow efficiency is preserved. Pharyngeal swallow function appears overall safe though patient is with mild oral-pharyngeal dysphagia in setting of what is likely baseline oral-motor discoordination in setting of developmental intellectual disability, and partial edentulousness and exacerbated by impulsive eating behaviors. He also demonstrates mild delayed pharyngeal onset but with preserved laryngeal closure and excellent airway protection. Only flash shallow penetration (WFL) was observed with liquids and there was little to no pharyngeal residue with purees and solids. Patient did demonstrate prolonged mastication and reduced rotary mastication as well as delayed a/p transit as well as poor oral hold (spillage to roof of mouth and poor recollection) with thin liquids. Of note, he was unable to coordinate a/p transit for barium tablet in thin liquid nor puree, likely in setting of mixed consistencies requiring additional coordination as well as anxiety (patient takes pills crushed at baseline). Further interview with patient's brother this date is concerning for esophageal dysphagia, with multiple regurgitation/nausea episodes recently. Patient appears to be at low risk for potential aspiration PNA and/or pulmonary compromise and low risk for malnutrition, dehydration. Diet modification is indicated for edentulousness and in light of impulsive eating; non-oral nutrition is not indicated. No further [employer] services are indicated at this time unless further concerns arise. RECOMMENDATIONS: Diet Texture Recommendation:? IDDSI LEVEL SOLIDS 6-Soft & Bite-Sized Solids LIQUIDS 0-Thin Liquids Please see further details at?[email or web address].iddsi.org MEDICATIONS Crushed, as able with 0-Thin Liquids or 4-Puree (per baseline) Diet texture modification is per patient's preference; please adjust diet textures at patient's discretion & collaboration with care team. Do not alter medications (e.g., cut)? without advice from your MD or pharmacist. Risk Management Strategies:? Behavioral reflux precautions, including upright position during + 90 mins after meals. Small bites, approx [id number] Small sips, approx 10 mL Encourage avoidance of straws Control risk factors for aspiration pneumonia via (a) thorough oral hygiene & (b) maintaining physical mobility as tolerated ----- OBJECTIVE Videofluoroscopic Swallow Evaluation (VFSE/MBSS) was conducted in the lateral[ and [id number]] projection by Speech-Language Pathologist, in collaboration with Radiologist, to evaluate oropharyngeal swallow function. Anatomic view under fluoroscopy: C 4 anterior prominence mildly impacting proximal esophageal bolus flow but without retention. PO Barium Contrast Trials Oral barium water-soluble contrast was administered as follows: IDDSI Level 0 Varibar thin liquid (40% w/v) IDDSI Level 4 Varibar pudding/pureed/extremely thick (40% w/v) IDDSI Level 7 Regular Solid: 1/2 darwin cracker coated in 3 mL Varibar pudding 13 mm barium tablet taken with Thin Liquids , Puree. MBSImP Component Scores: COMPONENT Scale SCORE 1 Lip closure (0-4) 4 Resulted in escape beyond mid-chin 2 Hold Position (0-3) 1 Allowed bolus escape to lateral buccal cavity/floor of mouth 3 Bolus Preparation (0-4) 1 Resulted in slow prolonged chewing/mashing with complete re-collection 4 Bolus Transport (0-4) 2 Was with slowed tongue motion 5 Oral Residue (0-4) 2 Was a collection on oral structures 6 Swallow Initiation (0-4) 3 Occurred when the bolus head was in the pyriform sinuses 7 Soft Palate Elevation (0-4) 0 Resulted in no bolus between soft palate and the pharyngeal wall 8 Laryngeal Elevation (0-3) 1 Was decreased with partial superior movement of thyroid cartilage/partial approximation of arytenoids to epiglottic petiole 9 Anterior Hyoid Motion (0-2) 0 Demonstrated complete anterior movement 10 Epiglottic Movement (0-2) 0 Resulted in complete inversion 11 Laryngeal Closure (0-2) 0 Was complete with no air or contrast in laryngeal vestibule 12 Pharyngeal Stripping Wave (0-2) 0 Was present and complete 13 Pharyngeal Contraction (0-3) NA 14 PES Opening (0-3) 0 Was completely distended and complete duration with no obstruction of flow 15 Tongue Base Retraction (0-4) 1 Allowed a trace column of contrast or air between tongue base and pharyngeal wall 16 Pharyngeal Residue (0-4) 1 Showed a trace within or on pharyngeal structures 17 Esophageal Clearance (0-4) NA Results: COMPONENT Scale SCORE 1 Oral Score (0-18) 9 2 Pharyngeal Score (0-29) 1 3 Esophageal Score (0-4) 0 Penetration-Aspiration Scale: COMPONENT Scale SCORE 1 Thin liquid (1-8) 2 Contrast entered the airway, remained above the vocal folds, and was ejected from the airway. 2 [place] thick (1-8) NA 3 Honey thick (1-8) NA 4 Pudding thick (1-8) 1 Contrast did not enter the airway 5 Cookie (1-8) 1 Contrast did not enter the airway Trialed Compensatory Strategies & Outcome: Maneuvers Successful (+) Unsuccessful (-) Postures Successful (+) Unsuccessful (-) 3 second Preparatory Set? +/- ? Chin Tuck Posture? ? Cough? ? Posterior Head tilt? Reflexive? Cued? Throat Clear? ? Head Tilt to? Reflexive? Left? Cued? Right? ? Saliva swallow? ? Head Turn/Rotate to? ? Supraglottic Swallow? Left? ? Super-supraglottic Swallow? Right? ? Bolus Modifications Successful (+) Unsuccessful (-) Delivery/Alternating Consistencies ? Follow with Liquid Wash ? Follow with Solid Bolus? - (for oral transit of tablet) Delivery/Via Straw? ? Reduced Volume? +/- ? Reduced Rate of Intake? ? Increased Viscosity? ? Other:?? ? Thank you for allowing us to take part in this patient's care. Please feel free to contact the [facility] Speech Language Pathology Department with any questions/concerns.
--- NOTE | 2023-11-16 15:32 | PGE_ITS ---
Date of Service Date of service: 11/16/23 Time of Service: 15:32 Assessment and Plan Assessment and plan (1) Cellulitis: Status: Acute Assessment and plan: right upper arm, improving, continue CTRX and Vanco through today, then can change to oral antibiotics, note, I thought he had been screened for MRSA but was not, I will get MRSA swab, if positive then he should be dc on Zyvox otherwise probably can use either high dose Keflex or an Augmentin. WBC normal. procalcitonin which was normal on 11/12 at 0.2 kelechi to 4 yesterday, will repeat CBC, CRP and procalcitonin but clinically he is so much improved. I think he will be ready for discharge tomorrow w/ completion of outpatient antibiotics. Plans discussed w/ his brother whom I told him that Ahsan would probably be ready for dc by early afternoon tomorrow. Qualifiers: Site of cellulitis: extremity Site of cellulitis of extremity: upper extremity Laterality: right Qualified Code(s): L03.113 - Cellulitis of right upper limb (2) Rhabdomyolysis: Status: Acute Assessment and plan: improving, CK now 800, I have dc iv fluids, he is taking po well. likewise the troponin I was felt to be secondary to skeletal muscle injury and not cardiac; normal echo; see Dr. Lincoln's note. Qualifiers: Rhabdomyolysis type: traumatic Encounter type: initial encounter Qualified Code(s): T79.6XXA - Traumatic ischemia of muscle, initial encounter (3) Elevated LFTs: Status: Acute Assessment and plan: minimal elevation of AST, will repeat CMP tomorrow prior to dc, if still elevated then consider screen for hepatitis however rest of LFT have been ok including bilirubin. This may have been from his acute infection (4) Cerebrovascular accident: Status: Ruled-out Assessment and plan: no CVA was found on his MRI, therefore no need for telemetry monitoring. He does have hypercholesterolemia and his CTA did show some carotid atherosclerosis but was not hemodynamically significant. therefore one could argue for long term care administrator low dose aspirin for future prevention of stroke/WA; likewise his lipids were not well controlled on his prior atorvastatin dose of 40 mg daily, one could argue for preventive more intense statin regimen w/ either continued high dose atorvastatin 80 mg (he was on 40 mg at home) or use crestor 20 mg daily. Qualifiers: CVA mechanism: occlusion Precerebral and cerebral artery: middle cerebral artery Laterality of affected vessel: right Qualified Code(s): I63.511 - Cerebral infarction due to unspecified occlusion or stenosis of right middle cerebral artery (5) Elevated troponin level not due myocardial infarction: Status: Acute Assessment and plan: secondary to acute skeletal muscle injury related to his falls, no need to continue to monitor at this point as it is now falling. (6) Thrombocytopenia: Status: Acute Assessment and plan: stable; will dc aspirin, change heparin to SCD (7) Ulcer of left heel: Status: Acute Assessment and plan: superficial and does not need debridement; see Dr. Spangler's consult note from 11/14. he can follow up in podiatry office as outpatient. Qualifiers: Non-pressure ulcer stage: limited to breakdown of skin Qualified Code(s): L97.421 - Non-pressure chronic ulcer of left heel and midfoot limited to breakdown of skin Subjective Subjective Interval history since last seen: Ahsan feels markedly better. No choking spells. He had his MBS this afternoon. I talked w/ Lula Lewis, Ahsan exhibits typical lingual/oropharyngeal discoordination d/t his underlying developemental delay/cognitive impairment. Ahsan has impulsive behavior (which his brother has noted) in which Ahsan will be in a richter to eat and often will take another bite before he has finished the previous bite and before he has swallowed. He will also talk with people while eating. This increases his risks for aspiration but other than cognitive behaviorial reinforcement of good eating habits, nothing further to do. Ahsan should be upright in chair for his feedings (which we have been doing). Ahsan has had no fevers. Blood culture showed no growth. He will complete iv antibiotics today (Vancomcyin and Rocephin) but I think he can return home tomorrow and should finish another week of oral antibiotics (total of 10 days). he has had 3 days of iv antibiotics (initially Ancef then changed to Ceftriaxone and Vancomycin). I would cover for both Staph and Strep for his cellulitis of his right arm. Exam Narrative Exam Narrative: Ahsan is alert, talkative, no discomfort, states he feels much better, he is oriented to person/place and time (he was able to count how many days he has been in the hospita Lungs: clear Heart: RRR, no murmur Abdomen: soft, nontender Extremities: right upper arm w/ some residual erythema but decreasing in size, couple of scabs over the area.l Objective Last Vital Signs Temp 36.3 C L 11/16/23 11:15 Pulse 63 11/16/23 11:15 Resp 18 11/16/23 11:15 BP 136/66 11/16/23 11:15 Pulse Ox 97 11/16/23 11:15 Laboratory Results - last 24 hr 11/14/23 11/16/23 11/16/23 18:10 05:50 05:50 WBC 6.03 RBC 2.89 L Hgb 9.6 L Hct 27.7 L MCV 96 H MCH 33.2 H MCHC 34.7 RDW 14.3 H Plt Count 99 L MPV 11.2 H Immature Gran % 0.2 Neutrophils % 52.2 Lymphocytes % 26.7 Monocytes % 13.9 Eosinophils % 6.5 Basophils % 0.5 Nucleated RBC % 0.0 Absolute Neutrophils 3.15 Absolute Lymphocytes 1.61 Absolute Monocytes 0.84 H Absolute Eosinophils 0.39 Absolute Basophils 0.03 RBC Morphology Normal Sodium 140 Potassium 3.9 Chloride 107 Carbon Dioxide 25.1 Anion Gap 7.9 BUN 17 Creatinine 0.6 L Est GFR (CKD-EPI 2020) 109.83 Glucose 89 Calcium 8.2 L Total Bilirubin 1.0 AST 110 H ALT 40 Alkaline Phosphatase 56 Creatine Kinase Cancelled 838 H Troponin I Cancelled Total Protein Albumin Random Vancomycin Urine Legionella Ag Negative 11/16/23 05:50 WBC RBC Hgb Hct MCV MCH MCHC RDW Plt Count MPV Immature Gran % Neutrophils % Lymphocytes % Monocytes % Eosinophils % Basophils % Nucleated RBC % Absolute Neutrophils Absolute Lymphocytes Absolute Monocytes Absolute Eosinophils Absolute Basophils RBC Morphology Sodium Potassium Chloride Carbon Dioxide Anion Gap BUN Creatinine Est GFR (CKD-EPI 2020) Glucose Calcium Total Bilirubin AST ALT Alkaline Phosphatase Creatine Kinase Troponin I 6922 H* Total Protein 7.0 Albumin 2.5 L Random Vancomycin 14.7 Urine Legionella Ag Time Spent with Patient Time Spent with Patient: 25-34 minutes Time was spent: preparing to see the patient(eg.review tests), ordering medications,tests, procedures, referring, communicating with other health progressive care unit registered nurse, indepentently interpreting results, counseling the patient and care coordination
[2023-11-16 15:46] VITALS: BP 136/64; PULSE 65; RESP 17; TEMP 37.2; O2SAT 96
[2023-11-16] MEDS: Atorvastatin 40 MG TAB 80 MG PO (20:47)
[2023-11-16 21:54] LABS: Lab Add On Test DONE
[2023-11-16 22:08] LABS: C-Reactive Protein 6.11 mg/dL (<or=0.5)
[2023-11-16 23:02] VITALS: BP 134/66; PULSE 70; RESP 15; TEMP 37.4; O2SAT 95
[2023-11-17 00:26] LABS: Streptococcus Pneumoniae Ag, U Negative (Negative)
[2023-11-17 01:37] LABS: MRSA PCR Negative (Negative)
[2023-11-17] MEDS: Heparin 5,000 UNITS/ML VIAL 5000 UNITS SC (04:47)
[2023-11-17 07:42] LABS: HGB 10.8 g/dL (13.5-17.5); MCH 33.9 pg (27.0-33.0); MCHC 34.8 % (32.0-36.0); MCV 97 fL (80-95); MPV 10.8 fL (8.0-11.0); RBC 3.19 10^6/uL (4.36-5.78); RDW 14.1 % (11.8-14.1); RDW-SD 50.3 fL; WBC 4.46 10^3/uL (4.4-10.8)
[2023-11-17 08:09] LABS: ALT 48 U/L (16-63); AST 97 U/L (15-37); Albumin 2.8 g/dL (3.4-5.0); Alkaline Phosphatase 67 U/L (46-116); Anion Gap 10.2 mmol/L (3-11); BUN 14 mg/dL (7-18); Bilirubin, Total 0.8 mg/dL (0.2-1.0); CO2 25.8 mmol/L (21.0-32.0); CREATININE 0.6 mg/dL (0.70-1.30); Calcium 8.5 mg/dL (8.5-10.1); Chloride 105 mmol/L (98-107); Estimated GFR 109.83 (mL/min/1.73m2); Ferritin 498 ng/mL (26-388); Glucose 106 mg/dL (74-106); Potassium 3.9 mmol/L (3.5-5.1); Sodium 141 mmol/L (136-145); Total Protein 7.6 g/dL (6.4-8.2)
[2023-11-17 08:13] LABS: Absolute Eosinophil Count 0.36 10^3/uL (0.0-0.7); Absolute Lymphocyte Count 1.34 10^3/uL (1.2-3.4); Absolute Monocyte Count 0.45 10^3/uL (0.1-0.8); Absolute Neutrophil Count 2.32 10^3/uL (1.2-6.7); Atypical Lymphocytes % 3 %; Bands % 2 %; Diff Comment Manual Differential; Platelet Count 103 10^3/uL (130-400); RBC Morphology Normal
[2023-11-17 08:16] LABS: Procalcitonin 1.5 ng/mL
[2023-11-17 08:22] VITALS: BP 134/59; PULSE 64; RESP 20; TEMP 36.1; O2SAT 97
[2023-11-17] MEDS: Amoxicillin 875/Clav. 125 TAB PO (08:37)
[2023-11-17] MEDS: Folic Acid 1 MG TAB PO (08:37)
[2023-11-17] MEDS: sulfaSALAzine 500 MG TAB PO (08:37)
[2023-11-17] MEDS: Normal Saline Flush 10 ML SYR IVP (08:38)
[2023-11-17] MEDS: Multivitamin TAB 1 TAB PO (08:38)
[2023-11-17] MEDS: Cholecalciferol (Vitamin D3) 1,000 UNIT TAB 1000 UNITS PO (08:39)
[2023-11-17] MEDS: Aspirin 81 MG CHEW PO (08:41)
[2023-11-17 08:47] LABS: Iron 93 ug/dL (65-175); Total Iron Binding Capacity 232 ug/dL (250-450); Transferrin Sat 40 % (20-55)
--- NOTE | 2023-11-17 09:40 | PDOC.CMPRO ---
Date of service: 11/17/23 Time of Service: 09:40 Care Management Progress Note Progress Note Text Progress Note Text: S/O: Ashan remains inpatient at [facility], modified barrium swallow was completed yesterday afternoon. Discharge home on PO ABX is anticipated for today per provider who also discussed plan with pts guardian. CM continues to follow. A: Ahsan is a 63 year old admitted to [facility] 11/13/23 P: Ahsan will discharge home when medically ready. He will transport via private vehicle with family. He will follow up with his PCP and discharge plan of care. He will have no new services. CM following. SDOH(Care Management) Screening Will the Patient Participate in the Screening?: Unable to obtain
--- NOTE | 2023-11-17 09:51 | PT.INTREAT ---
PT Notes Visit Reasons: Right CVA,cc heriberto jones Date: 11/17/23 PRECAUTIONS: Standard. Activity as tolerated. On 2 L of continuous oxygen via NC. SUBJECTIVE: pt in recliner when approached for therapy this morning, pt reported having bilateral leg spasms early in the morning which resolved quickly, nurse aware of pt complaints, pt agreed to participating with session. OBJECTIVE:?Fall. Standard. Activity as tolerated. ? PAIN: none VITALS: monitored by nursing Therapeutic Activities 49900 15mins: Direct one-on-one instruction in dynamic activities to improve functional performance. ?? BED MOBILITY/TRANSFERS? Rolling L/R: not performed Supine-sit: not performed? Sit-supine: not performed? Sit-stand: ?CGA initially SBA consecutive STS ? Stand-sit: ?SBA? Bed-Commode:? SBA? Commode-bed: SBA Provided skilled cues and instruction on performance and technique throughout. Gait Training [id number]: Direct one-on-one instruction and skilled instruction in: Employing an assistive device Modified weight-bearing status Movement sequencing Turning and movement with proper form Provided verbal cues for equipment management and technique Provided instruction in gait pattern Patient education regarding pacing and breathing techniques to maximize activity tolerance? GAIT? Assistive Device: ?? no AD ? Weight bearing: FWB Assist: ?CGA? Distance:?? 150'x2 seated rest break in between distances ? Deviation: ?Slow ally speed, stoop forward posture, low step height short step length, WBOS. ? ASSESSMENT:?pt reports he had enough walking for this morning, pt reports he would like to rest but is looking forward to walking again this afternoon if he is not DC yet. PLAN: Continue with balance training, global strengthening and general conditioning for improved safety, mobility and activity tolerance until pt is ready for DC TREATMENT CODE/TIME: [id number] 20mins (9:15-9:35am)
--- NOTE | 2023-11-17 09:53 | W.PM.DS.N ---
Date of service: 11/17/23 Time of Service: 10:11 DS: Diagnosis Discharge Diagnosis (1) Cellulitis: Status: Acute Asessment and Plan: - Right upper arm, improved on ceftriaxone and Vanco -Has been changed to complete 2-week course of Augmentin (2) Rhabdomyolysis: Status: Acute Asessment and Plan: - Improved with IV fluid hydration (3) Elevated LFTs: Status: Acute Asessment and Plan: - Minimal, improved during hospitalization (4) Cerebrovascular accident: Status: Ruled-out (5) Elevated troponin level not due myocardial infarction: Status: Acute Asessment and Plan: - No chest pain, no changes in EKG -Consulted with cardiac cardiology, likely secondary to MSK injuries (6) Thrombocytopenia: Status: Acute (7) Ulcer of left heel: Status: Acute Asessment and Plan: - Follow-up with Dr. Spangler as outpatient Discharge Plan Disposition Patient Disposition: Home W/Home Health Services Condition: Good Discharge Details Reason For Visit: Right CVA,cc heriberto jones Admit Date/Time: 11/13/23 23:53 Admit Provider: Robles Carreon Attending Provider: Robles Carreon Primary Care Provider: Guy Dias [place] [facility] Course Hospital Course: Patient initially presented to the hospital after increased falls at home injuring his face and bruising over the last 2 days prior to presentation to the emergency department. He was ultimately found to have cellulitis, rhabdo myelitis, elevated LFTs, and significantly elevated troponin that was determined not to be due to MRI. CK significantly improved as well as LFTs, patient was treated with cellulitis initially on ceftriaxone and vancomycin which was transitioned to cefpodoxime at discharge given that MRSA swab was negative. Home Meds and New Rx's Prescriptions: New atorvastatin 40 mg Tablet 80 mg PO HS Qty: 90 0RF amoxicillin-pot clavulanate 875-125 mg Tablet 1 tab PO BID Qty: 20 0RF Continued multivitamin [Daily Multi-Vitamin] 1 EACH tablet 1 ea PO cholecalciferol (vitamin D3) 1,000 UNIT capsule 1,000 unit PO DAILY Qty: 30 folic acid 1 mg tablet 1 mg PO DAILY Qty: 90 3RF Rx Instructions: with sulfasalazine sulfasalazine 500 mg tablet 500 mg PO BID Qty: 180 3RF Rx Instructions: for Crohn's enteritis Discontinued atorvastatin 40 mg tablet 40 mg PO QHS Qty: 90 3RF Discharge Instructions Instructions: Stroke (DC) Stand Alone Forms: Nursing Discharge Form Referrals: Guy Dias DO [Primary Care Provider] - (Message left with office to call you to make follow up appointment for 1-2 weeks. If you do not hear from them please call office. ) Activity:: Activity as Tolerated Equipment/Supplies:: No Equipment Needed Diet:: As Tolerated Discharge Orders Discharge Orders: Discharge Order (Routine); Ordered 11/17/23 Ordered By: Pino Dahl DS: Summary Time Spent with Patient providing and/or coordinating discharge services: Greater than 30 minutes Status at Discharge Functional status at discharge: independent ambulation Overall status at discharge: patient is back to baseline Mental Status: mental status grossly normal Speech and Movement: speech and movement normal Mood: congruent mood Affect: normal affect Quality:SDOH Health Related Social Needs: No Data to Display Exam Narrative Exam Narrative: Well-appearing gentleman sitting up in the chair no acute distress, awake, alert, oriented to person and place, heart regular rhythm, lungs clear to auscultation bilaterally, abdomen soft, nontender, nondistended, right upper arm with areas of erythema consistent with cellulitis that reportedly improved as compared to admission Psych Mental Status: mental status grossly normal Speech and Movement: speech and movement normal Mood: congruent mood Affect: normal affect DS: Data Vitals/I&O Vitals and I&O: Vital Signs Temperature 97.0 F L 11/17/23 08:22 Temperature Source Tympanic 11/17/23 08:22 Pulse 64 11/17/23 08:22 Pulse Rhythm Regular 11/17/23 05:00 Pulse 67 11/15/23 14:09 Respiratory Rate 20 11/17/23 08:22 Respiratory Effort Normal, Non-Labored 11/17/23 05:00 Respiratory Depth Normal 11/17/23 05:00 Respiratory Pattern Normal 11/17/23 05:00 Blood Pressure 134/59 L 11/17/23 08:22 Blood Pressure Mean 78 11/15/23 09:00 Blood Pressure Position Supine 11/15/23 07:15 Pulse Oximetry 97 11/17/23 08:22 Oxygen Delivery Method Room Air 11/17/23 08:22 Oxygen Flow Rate 0 11/17/23 08:22 Pain Level 0 11/17/23 08:22 Comment pT stated last night he had a lot of pain in his legs but they are much better this morning. 11/17/23 08:22 Intake & Output 11/16/23 11/17/23 11/17/23 17:59 05:59 17:59 Intake Total 300 / 300 120 / 420 Balance 300 / 300 120 / 420 Weight 158 lb 15.253 oz Intake: IV 300 / 300 20 / 320 Oral 100 / 100 Other: Urine Color Yellow Yellow Yellow Urine Appearance Clear Clear Clear Urine Odor Normal Normal Comment not measured. Stool Size Small Small Stool Characteristics Liquid Formed Voiding Methods Toilet Toilet Data Completed and Pending Labs on day of discharge: Labs from last 24 hours 11/17/23 11/16/23 11/16/23 07:32 23:26 05:50 WBC 4.46 RBC 3.19 L Hgb 10.8 L Hct 31.0 L MCV 97 H MCH 33.9 H MCHC 34.8 RDW 14.1 Plt Count 103 L MPV 10.8 Immature Gran % See Differential Neutrophils % 50.0 Band Neutrophils % 2 Lymphocytes % 27.0 Atypical Lymphs % 3 Monocytes % 10.0 Eosinophils % 8.0 Basophils % 0.0 Nucleated RBC % 0.0 Absolute Neutrophils 2.32 Absolute Lymphocytes 1.34 Absolute Monocytes 0.45 Absolute Eosinophils 0.36 Absolute Basophils 0.00 RBC Morphology Normal Sodium 141 Potassium 3.9 Chloride 105 Carbon Dioxide 25.8 Anion Gap 10.2 BUN 14 Creatinine 0.6 L Est GFR (CKD-EPI 2020) 109.83 Glucose 106 Calcium 8.5 Iron 93 TIBC 232 L Transferrin Pending Transferrin % Sat 40 Ferritin 498 H Total Bilirubin 0.8 AST 97 H ALT 48 Alkaline Phosphatase 67 C-Reactive Protein 6.11 H Total Protein 7.6 Albumin 2.8 L Procalcitonin 1.5 MRSA (TEM-PCR) Negative Add-On Test Request DONE Preliminary micro results at discharge 11/13/23 20:50 Blood Culture - Preliminary Blood NO GROWTH 72 HOURS 11/13/23 20:34 Blood Culture - Preliminary Blood NO GROWTH 72 HOURS PFSH All Active Problems (Updated 11/16/23 @ 16:02 by Robles Carreon MD) Ulcer of left foot, limited to breakdown of skin (Acute) Chronic ulcer of left foot (Acute) Rhabdomyolysis (Acute) Ulcer of left heel (Acute) Elevated LFTs (Acute) Thrombocytopenia (Acute) Elevated troponin level not due myocardial infarction (Acute) Cellulitis (Acute) Cerumen impaction (Acute) Arthritis of knee, left (Acute) DEPO MEDROL 11/04/23 Neck muscle strain (Acute) Testicular hypofunction (Acute 10/06/11) Regional enteritis of unspecified site (Acute 01/15/83) Colonoscopy Dr Marcy Suero 08/12/1983; FAMILY DECLINES REPEAT Hyperlipidemia (Chronic 09/17/07) LDL >200; RISK 6% CALCULATED 09/2007; RX LIFESTYLE, FAMILY DECLINES MEDS; recalculated 5.4% no med indicated 05/2014; LDL >190: rec statin based on LDL; Risk calculated 06/2016 7.8% would not merit rx. 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 Crohn's disease of both small and large intestine with other complication (Chronic) perianal inflammation; compound topical Anemia (Chronic 09/27/08) Hb 12.4 in 2008; mild normocytic; persists, likley due to sulfasalazine; normal iron, B12 Surgical History H/O colonoscopy (08/12/83) Family History Mother Ulcerative colitis 08/2010 Maternal Aunt Diabetes Paternal Uncle Colon cancer Maternal Grandmother Liver cancer Social History Smoking/Tobacco Use Status: Never Second Hand Exposure: No Smoking risk assessment performed?: Yes Alcohol Intake: never Substance use type: does not use Adopted: No Caregiver/Support person: Yes (mother) Foster care: No Household members: other Details: lives with brother Housing: house Number of Children: 0 number of grandchildren: 0 Education Level: high school Do you need help understanding health information?: Often 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 Pets and animals: No How often do you talk on the phone with friends or family?: twice per week How often do you get together with friends or relatives?: three or more times per week Do you belong to any clubs or organized social groups?: no Panel score (0-1 are the most socially isolated patients): 1 Jyotsna/Zoroastrian: Holiness Special jyotsna needs: No Seatbelt use: always Drive intox or ride w/intox owner operator 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 truck driver: No Water heater temp set <120 deg: Yes Working smoke detector in home: Yes Fire extinguisher in home: Yes Carbon monox detector in home: Yes Victim of physical abuse: No Victim of emotional abuse: No Victim of sexual abuse: No Additional Social history: LIVE W/ PARENTS IN ORIENT Time Spent with Patient Time Spent with Patient: <45 minutes Time was spent: preparing to see the patient(eg.review tests), obtaining and/or reviewing separately otained hiistory, ordering medications,tests, procedures, referring, communicating with other health career and technology education teacher, indepentently interpreting results, counseling the patient and care coordination
--- NOTE | 2023-11-17 10:37 | PDOC.CMDIS ---
Date of service: 11/17/23 Time of Service: 10:37 LACE Index Scoring Tool Questions: Length of Stay (in days): 4 - 6 Was the patient admitted via the E.D.?: Yes E.D. Visits: 1 Answers: Total Score: 8 Risk of Readmission: Low Risk Care Management Discharge Plan Reason for Hospitalization: Right CVA Discharge Plan: Ahsan is discharged home on PO antibiotics and New [facility] services. He is transported via private private vehicle with his Guardian Brandon. He will follow up with community providers and his discharge plan of care as instructed. Patient/Family Education Needs: Review discharge instructions, limitations, medications and plan to follow up with community providers. Discuss ask me three and goals of self care. Services Needed at Discharge: Home Health Care Services (Jimenez [facility] RN, PT, OT, FELT PULLER. Coordinated by CM) SDOH Health Related Social Needs: No Data to Display
--- NOTE | 2023-11-17 10:39 | PDOC.HHF2F ---
Home Health Referral Home Health Orders Clinical synopsis of why skilled professionals are needed: Status post CVA with frequent falls and rhabdomyolysis as well as cellulitis Registered Nurse: Check all that apply Instruct on new or changed medication(s)/assess compliance: Ordered Assess for exacerbation of medical condition, instruct patient/caregivers on signs and symptoms to report for early detection: Ordered Physical Therapist: Check all that apply Increase strength & endurance for safe mobility at home: Ordered To design/establish home maintenance program: Ordered Fall reduction therapy program for patient with history of frequent falls: Ordered Home safety evaluation and teaching/gait training including stair management (if applicable): Ordered Occupational Therapist: Evaluate and treat for patient unable to perform ADL/IADL/self-care: Ordered Upper extremity strengthening, range and motion: Ordered Advertising Writer: Assist with community resources: Ordered Assist with termination clerk care planning: Ordered Encounter Date and Reason: I certify that a FTF encounter for this patient was performed on November 17, 2023 and that such encounter was related to the primary reason the patient requires home health services. The encounter was conducted in the following manner: By me as the certifying physician, FUEL PILOT ENGINEER, PA or By an inpatient physician, FUEL PILOT ENGINEER or PA during an inpatient stay who communicated findings to me, Certification And Authentication I certify that I composed the above information based on my clinical judgment relating to this patient's medical condition and, if applicable, clinical findings communicated to me by the NPP or inpatient physician who performed the FTF encounter. Name of Provider that will be monitoring home health services: Guy Dias
[2023-11-18 11:30] LABS: Transferrin 176 mg/dL (201-352)
== END 2023-11-17 12:21 | disposition home health service (06) | DRG 603 ==
LOC: ER 11-14 00:17 → MS 11-14 00:56 → ICU 11-14 14:32 → MS 11-15 15:42
PROVIDERS: Family Medicine; Admitting Provider Internal Medicine; Emergency Provider Physician Assistant; PCP Family Medicine; Visit Provider Internal Medicine
DX: L03.113 Cellulitis of right upper limb (principal); K50.818 Crohn's disease of both small and large intestine with other complication; L97.421 Non-pressure chronic ulcer of left heel and midfoot limited to breakdown of skin; R74.8 Abnormal levels of other serum enzymes; F89 Unspecified disorder of psychological development; D69.6 Thrombocytopenia, unspecified; D63.8 Anemia in other chronic diseases classified elsewhere; T79.6XXA Traumatic ischemia of muscle, initial encounter; R29.6 Repeated falls; R50.9 Fever, unspecified; R79.89 Other specified abnormal findings of blood chemistry; S00.83XA Contusion of other part of head, initial encounter; W19.XXXA Unspecified fall, initial encounter; R74.01 Elevation of levels of liver transaminase levels; L85.9 Epidermal thickening, unspecified; E78.00 Pure hypercholesterolemia, unspecified; R41.89 Other symptoms and signs involving cognitive functions and awareness
CPT/HCPCS: 00123; 36415; 36416; 70496; 70498; 80053; 82550; 82805; 82962; 83690; 84145; 85027; 85652; 87040; 87449; 87637; 87641; 92526; 92610; 93005; 93306; 93308; 96365; 96366; 96368; 96375; 97162; 97166; 97530; 97535; 99221; 99285; 70551; 71045; 74221; 76705; 80202; 81003; 81015; 82728; 83540; 83550; 83605; 83735; 83880; 84443; 84466; 84484; 85025; 85610; 86140; 87899; 93010; 99223; 99231; 99232; 99238; 99291; J0131; J0690; J0696; J1644; J1885; J2405; J3372; J3490

== ENCOUNTER → 2023-11-15 13:54 | Outpatient (BNVA) | payer MEDICARE, MEDICAID, SELFPAY | PROVIDERS: PCP Family Medicine; Referring Provider Family Medicine; Visit Provider Internal Medicine Cardiovascular Disease ==

== ENCOUNTER → 2024-12-28 12:49 | Outpatient (BNVA) | payer MEDICARE, MEDICAID, SELFPAY | PROVIDERS: PCP Family Medicine; Referring Provider Family Medicine; Visit Provider Physical Therapy Assistant | DX: Z12.11 Encounter for screening for malignant neoplasm of colon (principal) | CPT/HCPCS: S0285 ==

== ENCOUNTER 2025-01-08 06:10 | Day surgery (SDC) | payer MEDICARE, MEDICAID, SELFPAY ==
--- NOTE | 2025-01-07 20:25 | W.PM.DSUDISC ---
Date of service: 01/08/25 Discharge Plan Disposition Patient Disposition: Home Condition: Good Discharge Details Reason For Visit: screening colonoscopy Attending Provider: Blake Sanon Primary Care Provider: Guy Dias Home Meds and New Rx's Prescriptions: Continued multivitamin [Daily Multi-Vitamin] 1 EACH tablet 1 ea PO DAILY cholecalciferol (vitamin D3) 1,000 UNIT capsule 1,000 unit PO DAILY Qty: 30 sulfasalazine 500 mg tablet 1 g PO BID Qty: 360 3RF Rx Instructions: for Crohn's enteritis folic acid 1 mg tablet 1 mg PO DAILY Qty: 90 3RF Rx Instructions: with sulfasalazine atorvastatin 40 mg tablet 40 mg PO HS Qty: 90 3RF Discontinued bisacodyl [Dulcolax (bisacodyl)] 5 mg tablet,delayed release (DR/EC) 5 mg PO ONCE Qty: 4 0RF Rx Instructions: Take per colonoscopy instructions provided by ordering providers office polyethylene glycol 3350 17 gram/dose powder 17 g PO ONCE Qty: 238 0RF Rx Instructions: Take per colonoscopy instructions provided by ordering providers office Discharge Instructions Instructions: Colon polyps Additional Instructions: Ahsan, it was very nice meeting you today, and I hope you feel well after the colonoscopy. Things went very smoothly. I did find, and removed, 4 polyps today. All of these were quite small, and none of them appear particularly worrisome to the naked eye. These will be sent off for testing. Colon polyps, different types, and we use that information to help guide the timing of future colonoscopies. The removal of these polyps may cause a little bit of bleeding over the next few months. I will be alarmed about that. It typically resolves in about 48 hours. With regards to your Crohn's disease, things look very well-controlled at this point. You do have some chronic changes from Crohn's disease, they are quite tender. There does not appear to be any active inflammation. Sameer asked me on Wednesday if there would be any benefit to changing around your medications. Certainly, there are new medicines that are used to treat Crohn's disease, but their use is largely dependent on the severity of patient's symptoms weighed against side effect of the medications. Based on what I see today, I do not think there is any compelling reason to switch medicines. Generally, however, I defer to the specialists at [facility] for chronic management of Crohn's. If you would like to meet with them, I would be more than happy to provide that referral. Alternatively, if you are doing well with the sulfasalazine, I see no reason to switch. The results from the polyp analysis will take a week or so to get back, I will reassess, I will be in touch. If you have any questions, or would like a referral down to [facility], please let me know, and help with those arrangements. 1. If tolerated, consume a soft, low fiber diet for 1-2 days. [address] Do not drive, drink alcohol, operate machinery, make critical decisions, or do activities that require coordination or balance for 24 hours. 3. Because air was put into your colon during the procedure, expelling air from your rectum (passing gas or farting) is normal. 4. You may not have a bowel movement for 1-3 days because of the colonoscopy prep. This is normal. 5. Go directly to the emergency room if you notice any of the following: Develop chills (warm to touch), or if you have a thermometer and your temperature is above 101 Difficulty breathing or difficultly swallowing Persistent vomiting Severe abdominal pain, other than gas cramps Severe chest pain Black, tarry stools Any bleeding ? exceeding one tablespoon 6. Call your physician if the site where your intravenous was started becomes red, swollen, painful, and warm to touch. 7. Your physician has reviewed your pre-procedure medications. Please continue to take those medications as previously ordered. You will be given specific information/education regarding any changes to your medications before leaving. Stand Alone Forms: Anesthesia Discharge Inst., Oxana More (DSU) Activity:: Activity as Tolerated Diet:: As Tolerated Discharge Orders Discharge Orders: Discharge Order (Routine); Ordered 01/07/25 Ordered By: Blake Sanon DS: Diagnosis Discharge Diagnosis (1) Encounter for screening colonoscopy: Status: Acute Asessment and Plan: Follow-up on polypectomy results
--- NOTE | 2025-01-07 20:27 | W.COLOREPORT ---
Date of service: 01/08/25 Time of Service: 08:03 Colonoscopy Report Date of procedure: 01/08/25 Pre-op diagnosis general: screening colonoscopy Post-op diagnosis procedure note: other (Colon polyps, Crohn's disease) Procedure: colonoscopy with polypectomy Surgeon: Blake Sanon Anesthesia Type: General:No Airway Estimated blood loss (mL): 5 Pathology: other (0.25 cm polyp 80 cm, 0.25 cm polyp 90 cm, 0.25, Demeter polyps at 35 cm x 2 (single specimen)) Complications: None Disposition: same day Indications: Ahsan is a 64 year old man who needs a screening colonoscopy Prep: Miralax/Dulcolax Procedure Start Time: 07:33 Procedure End Time: 07:48 Retraction Time: 9 Findings: Mild, random, and cecum. In the laboratory evaluation, 0.25 cm polyp 80 cm, 0.25 cm polyp 90 cm, 0.25, Demeter polyps at 35 cm x 2 (single specimen) Procedure Description: After the induction of anesthesia, and with the patient in left lateral decubitus position, I began by performing an external anorectal exam.? Perineum and skin were normal, as was the anal verge.? There was no evidence of external hemorrhoids.? Next, I performed a digital rectal exam.? I did not appreciate any abnormal findings.? Next, I advanced a colonoscope into the rectal vault.? I performed retroflexion.? There is some mild cobblestoning of the rectal vault, without any active inflammation or bleeding.? Using irrigation, I then advanced the colonoscope beyond the rectal folds and into the sigmoid colon before advancing towards the cecum.? The scope was noted to be in the cecum by identification of the ileocecal valve and appendiceal orifice. There is patchy cobblestoning of the cecum, again without active inflammation I then began withdrawing the colonoscope using repeated irrigation as necessary for full evaluation of the colonic mucosa. ?The ascending colon appears healthy and normal. Similarly, the mucosa of the transverse colon looks unaffected by Crohn's. There is a 0.25 cm pedunculated polyp at 80 cm, which is removed with cold forceps. There is minimal bleeding from the spine. Another polyp was found around 50 cm from the anal verge. This is less than 0.25 cm, and also a bit pedunculated. This was removed with cold forceps without issues. Around 35 cm from the anal verge for 2 more polyps. These are by just a few millimeters. One is pedunculated, the other is more flat. Both of these were removed with cold forceps. These were sent as a single specimen. Once the scope was withdrawn to the level of the rectum, great care was taken to examine portions of the rectal folds.? Finally, the scope was withdrawn and the patient was brought to the same-day surgery recovery unit as the anesthetic wore off. ?The findings and instructions were shared with the patient prior to discharge. [place] Bowel Prep [place] Bowel Prep Right Colon: 3 Left Colon: 3 Transverse Colon: 3 Total Score: 9
[2025-01-08 06:05] VITALS: BP 154/72; PULSE 85; RESP 18; TEMP 37.1; O2SAT 96
[2025-01-08] MEDS: Lactated Ringers 1,000 ML 80 ML IV (07:00)
--- NOTE | 2025-01-08 07:01 | W.ANESPRE ---
General Info Date of Service Date Performed: 01/08/25 Height: 5 ft 7 in Weight: 70.76 kg Body Mass Index (BMI): 24.4 Surgical Procedure: Operation Date: 01/08/25 07:35 Proposed Procedure Side Surgeon thanh Sanon MD Meds Allergies and Home Medications Allergies Allergy/AdvReac Type Severity Reaction Status Date / Time Penicillins Allergy Unknown unknown Verified 01/08/25 06:28 Home Medication ?Medication ?Instructions ?Recorded cholecalciferol (vitamin D3) 25 1,000 unit PO DAILY ##30 09/23/12 mcg (1,000 unit) capsule multivitamin (Daily Multi-Vitamin 1 ea PO DAILY 09/23/12 tablet) sulfasalazine 500 mg tablet 1 g (2 x 500 mg) PO BID #360 tabs 05/26/24 folic acid 1 mg tablet 1 mg PO DAILY #90 tab-caps 11/09/24 atorvastatin 40 mg tablet 40 mg PO HS #90 tabs 01/02/25 Current Visit Medications: Current Medications Generic Name Dose Route Start Last Admin Trade Name Anthony PRN Reason Stop Dose Admin Ringer's Solution 1,000 mls @ 80 mls/hr 01/08/25 06:00 IV 01/08/25 23:59 INFUSION AGNES IV Miscellaneous Supplies 1 each 01/08/25 06:00 Iv Access IV 01/08/25 23:59 DIRECTED AGNES Sodium Chloride 0 ml 01/08/25 06:00 Normal Saline Flush 10 Ml Syr IV 01/08/25 23:59 PRN PRN Sodium Chloride 0 ml 01/08/25 06:00 Normal Saline 10 Ml Vial IJ 01/08/25 23:59 DIRECTED PRN Sterile Water 0 ml 01/08/25 06:00 Water,Injection,Sterile 10 Ml Vial IJ 01/08/25 23:59 DIRECTED PRN PFSH Active Problems Active Problems: Problem Status Onset Code Encounter for screening colonoscopy Acute Z12.11 Ulcer of left foot, limited to breakdown of skin Acute L97.521 Chronic ulcer of left foot Acute L97.529 Ulcer of left heel Acute L97.429 Thrombocytopenia Acute D69.6 Elevated troponin level not due myocardial infarction Acute R79.89 Cellulitis Acute L03.90 Cerumen impaction Acute H61.20 Arthritis of knee, left Acute M17.12 Neck muscle strain Acute 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 Acute 10/06/11 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 Acute 01/15/83 K50.90 Hyperlipidemia Chronic 09/17/07 E78.5 Developmental disorder Chronic 07/19/81 F89 Crohn's disease of both small and large intestine with other complication Chronic K50.818 Anemia Chronic 09/27/08 D64.9 Surgical History Surgical History H/O colonoscopy (08/12/83) Tobacco Smoking/Tobacco Use Status: Never Passive smoking exposure: No Second hand exposure: No Alcohol Alcohol Intake: never Substance Use Substance use: Never Substance use type: does not use Vital Signs and Lab Results Vital Signs Most Recent Vital Signs in EMR: Most Recent Vital Signs Temp Pulse Resp BP Pulse Ox 37.1 C 85 18 154/72 H 96 01/08/25 06:05 01/08/25 06:05 01/08/25 06:05 01/08/25 06:05 01/08/25 06:05 Imaging and Studies Imaging and Studies Study information below may be from another EMR and interpreted by another provider. Please see original notes in EMR for more complete details. Echocardiogram Summary: 10/2023:Conclusion Normal left ventricular wall thickness and chamber size. EF is 55%. Wall motion is normal Normal right ventricular size and function Both atria are normal in size Aortic valve is sclerotic and trileaflet without stenosis or regurgitation Mild mitral annular calcification. Trace mitral regurgitation Normal tricuspid valve with trace regurgitation Estimated right ventricular systolic pressure is 30 mmHg Evaluation for shunt was inconclusive Anesthesia Assessment and Plan Anesthesia History Personal History: No History of Anesthesia Complications Family History: No Family History of Anesthesia Complications Exercise Tolerance Exercise Tolerance: Metabolic Equivalents>4 Pertinent Negatives Pertinent Negatives: No Symptoms of GERD Cardiac & Pulmonary Exam Cardiac Exam: Normal S1/S2 Heart Sounds Pulmonary Exam: Clear Bilateral Breath Sounds Implantable Cardiac Device Does patient have a Pacemaker or an ICD?: No Airway Exam Known Difficult Airway: No Mallampati Class: 2 Mouth Opening: Normal (> 3cm) Thyromental Distance: Greater than 3 cm Neck Range of Motion: Full ROM Neck Circumference: Normal Teeth Condition: Normal Dentition ASA Classification ASA Score: ASA 3 Emergency Case?: No NPO Status NPO Status: NPO Clears >2 hours, Solids >8 hours Anesthesia Plan Resuscitation Status: Full Code Anesthesia Technique: General Anesthesia Airway Planned: Natural Airway Monitors Used: Standard Monitors
[2025-01-08 07:21] VITALS: BMI 24.4
--- NOTE | 2025-01-08 07:41 | BOWEL_PTH ---
PATIENT: Ahsan Saucedo LOC: [facility] U#:[id number] AGE/SX: 64/M ROOM: RE01/08/[address]: Blake Sanon MD : 1960 BED: DIS: 01/08/2025 SPEC #: [id number] RECD: 01/08/25 13:01 STATUS: NEMESIO RE #: [id number] KEVIN: 01/08/25 07:[address]: Blake Sanon DEPT: Surgical Specimen RECD BY: Leslie Donaldson ENTERED: 01/08/25 13:02 SP TYPE: Bowel OTHR DR: Guy Dias DO Tissues: 1 - BIOPSY BOWEL 2 - BIOPSY BOWEL 3 - BIOPSY BOWEL Procedures: GROSS AND MICRO LEVEL 4 Comments: [id number]
[2025-01-08 07:55] VITALS: BP 120/64; PULSE 75; RESP 18; TEMP 36.6; O2SAT 96
[2025-01-08 08:40] VITALS: BP 151/69; PULSE 77; RESP 17; TEMP 36.7; O2SAT 96
--- NOTE | 2025-01-08 09:11 | W.ANESPOSTOP ---
Postoperative Evaluation Date, Time and Location Date Performed: 01/08/25 Time Performed: 08:00 Patient Location: Day Surgery Unit Vital Signs Most Recent Imported Vital Signs: Most Recent Vital Signs Temp Pulse Resp BP Pulse Ox 36.7 C 77 17 151/69 H 96 01/08/25 08:40 01/08/25 08:40 01/08/25 08:40 01/08/25 08:40 01/08/25 08:40 Pain Score Most Recent Pain Score: Most Recent Pain Score Pain Level 0 01/08/25 08:40 Assessment Mental Status: Awake (Alert & Oriented to Patient Baseline) Airway and Respiratory Function: Patent airway with normal (patient baseline) respiratory exam Cardiovascular Function: Hemodynamically Stable Hydration Status: Adequately Hydrated Nausea & Vomiting: No Nausea or Vomiting Pain: Pt. Denies Any Pain Peripheral Nerve Block: Patient did not receive a nerve block
== END 2025-01-08 08:49 | disposition home or self-care (01) ==
LOC: SUR 06:10
PROVIDERS: PCP Family Medicine; Visit Provider Surgery
PROC: 0DJD8ZZ Inspection of Lower Intestinal Tract, Via Natural or Artificial Opening Endoscopic (ICD-10-PCS; CPT 45378; principal; 2025-01-08 07:30)
DX: Z12.11 Encounter for screening for malignant neoplasm of colon (principal); D12.5 Benign neoplasm of sigmoid colon; K50.90 Crohn's disease, unspecified, without complications
CPT/HCPCS: 45380; 88305; J2704